=== PATIENT | male | born 1960 | race Caucasian/White ===

== ENCOUNTER → 2019-10-08 09:48 | Outpatient (BNVA) | payer SELFPAY | PROVIDERS: PCP Family Medicine; Referring Provider Family Medicine; Visit Provider Urology | DX: R79.89 Other specified abnormal findings of blood chemistry (principal); E29.1 Testicular hypofunction; N52.9 Male erectile dysfunction, unspecified; F52.4 Premature ejaculation | CPT/HCPCS: 81001 ==

== ENCOUNTER → 2021-09-06 14:50 | Outpatient (BNVA) | payer MEDICARE, SELFPAY | PROVIDERS: PCP Family Medicine; Referring Provider Family Medicine; Visit Provider Podiatrist Foot & Ankle Surgery | DX: M72.2 Plantar fascial fibromatosis (principal) | CPT/HCPCS: 73630; 99203; 99204 ==

== ENCOUNTER 2022-03-18 10:36 | Outpatient (CLI) | payer MEDICARE, SELFPAY ==
--- NOTE | 2022-03-18 11:30 | XRR_ITS ---
PROCEDURE INFORMATION: Exam: XR Lumbosacral Spine Exam date and time: 03/18/2022 11:47 AM Age: 61 years old Clinical indication: Low back pain; Additional info: Sciatica/lumbar pain including sacrum TECHNIQUE: Imaging protocol: Radiologic exam of the lumbosacral spine. Views: 2 or 3 views. Total images: 5 COMPARISON: MR lumbar spine wo con* [id number] 02/09/2016 3:48 PM FINDINGS: Bones/joints: Moderate disc space height loss at L5/S1. L1-3 mild degenerative disc disease with disc space narrowing and osteophyte formation. Vertebral body heights are maintained. No evidence of spondylolysis nor spondylolisthesis. Soft tissues: Unremarkable. Vasculature: Moderate atherosclerotic disease is evident. XR/XR lumbar spine 2-3V* [id number] IMPRESSION: Degenerative changes as described above but no acute pathology detected.
--- NOTE | 2022-03-18 11:30 | XRR_ITS ---
PROCEDURE INFORMATION: Exam: XR Bilateral Hips Exam date and time: 03/18/2022 11:47 AM Age: 61 years old Clinical indication: Hip pain and pelvic pain; Bilateral; Additional info: Bilat hip pain/pelvic pain with pelvis, with pelvis TECHNIQUE: Imaging protocol: Radiologic exam of the bilateral hips. Views: 2 views of hips with pelvis when performed. Total images: 2 COMPARISON: MR lumbar spine wo con* [id number] 02/09/2016 3:48 PM FINDINGS: Bones/joints: Mild marginal osteophytes are noted. No acute fracture nor subluxation. No osseous erosion nor periosteal reaction. Soft tissues: Unremarkable. XR/XR hip BI m 5V wo/w pel* [id number] IMPRESSION: No acute osseous pathology.
== END 2022-03-18 10:37 | disposition home or self-care (01) ==
PROVIDERS: PCP Family Medicine; Visit Provider Family Medicine
DX: M54.40 Lumbago with sciatica, unspecified side (principal); M25.552 Pain in left hip; M25.551 Pain in right hip; R10.2 Pelvic and perineal pain
CPT/HCPCS: 72100; 73523

== ENCOUNTER → 2022-04-30 13:15 | Outpatient (BNVA) | payer MEDICARE, SELFPAY | PROVIDERS: PCP Family Medicine; Visit Provider Surgery | DX: Z12.11 Encounter for screening for malignant neoplasm of colon (principal) | CPT/HCPCS: 99024; 99203 ==

== ENCOUNTER → 2022-05-15 09:45 | Outpatient (BNVA) | payer MEDICARE, SELFPAY | PROVIDERS: PCP Family Medicine; Visit Provider Internal Medicine Cardiovascular Disease | DX: R07.9 Chest pain, unspecified (principal); R06.02 Shortness of breath; I25.10 Atherosclerotic heart disease of native coronary artery without angina pectoris; I10 Essential (primary) hypertension; E78.5 Hyperlipidemia, unspecified | CPT/HCPCS: 99204 ==

== ENCOUNTER 2022-07-09 07:52 | Outpatient (CLI) | payer MEDICARE, SELFPAY ==
[2022-07-09 08:11] VITALS: BMI 39.6
--- NOTE | 2022-07-09 08:12 | ECG_ITS ---
[facility] Test Date: 2022-07-09 Pat Name: Tulio Brown Department: Room: Gender: Male Technician Support Engineer: : 1960 Requested By: Dea Jensen Order Number: [id number] Chaves MD: Harvey Farrell M.D. Interpretive Statements NAME OF STUDY: LEXISCAN SESTAMIBI STRESS TEST INDICATION: [Chest Pain, ] Procedure: At the baseline, the blood pressure was 161/98 mmHg with a heart rate of 55 bpm. The electrocardiogram showed sinus bradycardia, normal axis with normal ST and T's. The Lexiscan was infused over a period of 20 seconds. A total of 0.4 mg of Lexiscan was infused. The stress phase was continued for a total of 5 minutes. Heart rate was at the end of stress phase was 74 bpm and a blood pressure of 157/97 mmHg. The EKG at the peak infusion revealed normal sinus rhythm with no significant ST-T wave changes. Sestamibi was injected 20 seconds after the Lexiscan infusion. Blood pressure at the end of recovery phase was 157/93 mmHg with a heart rate of 72 bpm. Conclusion: 1. Normal EKG response to Lexiscan infusion 2. No Lexiscan induced chest pain or cardiac arrhythmia. 3. Normal blood pressure and heart rate response. 4. Sestamibi/sestamibi perfusion scan pending; see separate report. Electronically Signed On 07-20-2022 18:40:19 ORTHOTIST OR PROSTHETIST by Harvey Farrell M.D. [id number]
--- NOTE | 2022-07-09 08:12 | NMCV_ITS ---
NM xander perf SPECT r/s* [id number] Tulio Brown Age: 61 Gender: M : 1960 Exam Date: 07/09/2022 09:21 Ordering Phys: Dea Jensen MD ([email or web address]) Technologist: MAGNUS Stone Exam Location: [facility] Indications: CHEST PAIN STRESS TEST Please see separate stress test report in [facility] for full findings IMAGE PROTOCOL Rest/Stress 1 Lexiscan Day Radiopharmaceutical Dose (mCi) Administration Site Administered by Rest: Tc-99m 10.7 IV MAGNUS Holguin Sestamibi Stress:Tc-99m 32.6 IV MAGNUS Holguin Sestamibi Rest: 09-Jul-2022 60 Discovery 630 Stress: 09-Jul-2022 30 Discovery 630 0.4mg Lexiscan. Images obtained in supine and prone position. SPECT RESULTS Technical Quality: Excellent Raw Data Analysis: Normal Image Corrections: No attenuation or motion correction applied Summed Stress Score: 0 Summed Rest Score: 0 Summed Difference Score: 0 PERFUSION FINDINGS SPECT images demonstrate homogeneous tracer distribution throughout the myocardium. FUNCTIONAL RESULTS (calculated via Gated SPECT) Stress Image LV EF (%): 58 Stress EDV (mL):114 TID: 1.24 Stress ESV (mL):48 FUNCTIONAL FINDINGS: There is normal left ventricular systolic function. TID ratio is elevated. IMPRESSIONS 1. Myocardial perfusion imaging is normal with no evidence of ischemia 2. LV systolic function is normal. 3. TID ratio is elevated. Clinical correaltion is elevated. Harvey Farrell MD (Electronically Signed) Final Date: 09 July 2022 11:50 S
[2022-07-09] MEDS: regadenoson 0.4 Mg/5 ml Syringe IVP (10:10)
--- NOTE | 2022-07-09 10:23 | PC.NURSE ---
pt blood pressure 187/104. repeated and result was similar. spoke to dr alicea about pressures and he changed order to abdullahi.
[2022-07-09 10:28] VITALS: BP 157/93; PULSE 71
== END 2022-07-09 07:53 | disposition home or self-care (01) ==
PROVIDERS: PCP Family Medicine; Visit Provider Internal Medicine Cardiovascular Disease
DX: R07.9 Chest pain, unspecified (principal)
CPT/HCPCS: 36415; 78452; 93017; 96374; 99204; A9500; J2785

== ENCOUNTER 2022-07-24 12:05 | Inpatient (IN) | payer MEDICARE, SELFPAY ==
[2022-07-24] VITALS (22 sets, daily range): BP systolic 95–151; BP diastolic 66–93; PULSE 91–176; RESP 14–22; TEMP 37–37.2; O2SAT 92–96; BMI 36.8
--- NOTE | 2022-07-24 12:34 | XR_ITS ---
WS: [id number] Portable AP upright chest, 07/24/2022 Clinical Data: tachycardia Comparison: None. Findings: There is a patchy opacity in the periphery of the left lung with greatest diameter of 10.5 cm. Although this opacity could represent pneumonia, a lung mass is also possible. The right lung bayron ws only minimal atelectasis over the surface the right diaphragm. The right lung shows no nodules, ma sses or effusions. The heart is normal. The aortic arch shows mild tortuosity. There is an anterior c ervical disc fusion of the lower cervical spine. XR/XR chest 1V portable [id number] Impression: 1. Patchy opacity in periphery of left lung and recommend PA and lateral chest and probable CT chest 2. Atherosclerosis.
--- NOTE | 2022-07-24 13:32 | W.ED.GENADLT ---
HPI - General Adult General: Chief complaint: General Medical Stated complaint: sob/chills/urinary pain Time Seen by Provider: 07/24/22 13:32 History of Present Illness: Mr. Brown is a 61-year-old gentleman with history of CAD, hypertension, hyperlipidemia presenting to the emergency department for generalized illness. He reports 3 days of gradual onset symptoms including fevers, malaise, cough, chest pain associated with cough, shortness of breath. Symptoms are progressed to moderate to severe in intensity. He was seen by primary care provider and referred to the emergency department for further evaluation of possible kidney abnormality and pneumonia. No other specific changes in health, exacerbating, or alleviating factors identified. Onset (ago): day(s) Location: chest Severity: moderate Quality: aching Pain Consistency: constant Relieving factors: none Exacerbating factors: movement and other Associated symptoms: Reports cough, decreased appetite, fevers/chills, malaise and short of breath Review of Systems General: Reports: 10 or more systems reviewed and unremarkable except in HPI and below Const: Reports: malaise PFSH ED PFSH: Medical History CAD (coronary artery disease) Hyperlipidemia Hypertension Testicular hypogonadism Surgical History H/O hand surgery H/O heart artery stent H/O neck surgery Family History Father , at age 72 Brain aneurysm Hypertension Mother , at age 50 Cancer stomach Heart disease Social History Smoking and tobacco status: never smoked Alcohol intake: current Alcohol intake frequency: 0-2 Drinks per Day Marital status: Current occupational status: retired Physical Exam Const: COMMON NORMALS: alert GENERAL APPEARANCE: cooperative, well developed and ill appearing HENMT: COMMON NORMALS: normocephalic and atraumatic HEAD & SCALP: normocephalic and atraumatic Eye: COMMON NORMALS: conjunctivae normal CONJUNCTIVA: Yes conjunctivae normal SCLERA: sclerae normal Neck/C-Spine: COMMON NORMALS: supple GENERAL: Yes trachea midline Resp: EFFORT & INSPECTION: Yes able to speak in complete sentences AUSCULTATION: rhonchi Cardio: COMMON NORMALS: regular rhythm RATE: tachycardic RHYTHM: regular rhythm GI: COMMON NORMALS: Soft to palpation PALPATION: Yes Soft to palpation and No Tenderness to palpation present (GI) PERCUSSION: normal to percussion Extremity: GENERAL: Yes normal exam except as noted and No edema Neuro: COMMON NORMALS: moves all extremities SENSORIUM/ORIENTATION: Yes alert and No Orientation impaired Psych: COMMON NORMALS: mental status grossly normal and Normal thought process present THOUGHT PROCESS: Normal thought process present Course Vital Signs: Vital signs: Vital Signs Temperature 98.4 F 07/26/22 13:27 Pulse Rate 83 07/26/22 13:27 Respiratory Rate 18 07/26/22 13:27 Blood Pressure 160/77 07/26/22 13:27 Pulse Oximetry 94 07/26/22 13:27 Oxygen Delivery Me thod 07/26/22 11:32 Oxygen Flow Rate 2 07/25/22 04:00 MDM - General Adult Medical Decision Making 61-year-old gentleman presenting with generalized illness. Exam as above, patient has tachycardia and tachypnea with likely evidence of pneumonia. EKG demonstrates sinus tachycardia with normal axis and intervals, no STEMI. Labs with leukocytosis, mild evidence of dehydration on metabolic panel. Lactic acid initially is elevated. No UTI. Chest x-ray with likely left lung pneumonia. During ED course patient treated with IV fluids, antiemetic, antibiotics for community-acquired pneumonia. Most likely etiology of patient's symptoms is pneumonia with evidence of sepsis. The results of ED evaluation were discussed with the patient including plan for admission due to requirement for level of care not available if discharged to prevent significant worsening/deterioration. Patient agreeable with plan. Discussed with hospitalist service who was agreeable to admit patient. Medical Records I reviewed the patient's medical records. Lab Data I reviewed the patient's lab results. 07/24/22 13:10 07/24/22 13:10 Radiology Impressions Chest X-Ray 07/24/22 12:34 Impression: 1. Patchy opacity in periphery of left lung and recommend PA and lateral chest and probable CT chest 2. Atherosclerosis. Chest CTA 07/24/22 15:07 IMPRESSION: 1. Negative CT angiogram of the chest. No evidence of acute pulmonary embolism. 2. 8 cm masslike consolidation left upper lobe concerning for bronchogenic malignancy with rounded pneumonia felt less likely. 3. Mild mediastinal lymphadenopathy possibly metastatic in nature. Laboratory Results WBC 14.8 10^3/uL (4.0-10.0) H 07/24/22 13:10 RBC 4.83 10^6/uL (4.1-5.3) 07/24/22 13:10 Hgb 13.8 g/dL (11.7-16.6) 07/24/22 13:10 Hct 41.6 % (42.0-52.0) L 07/24/22 13:10 MCV 86.1 fl (80-94) 07/24/22 13:10 MCH 28.6 pg (28.0-34.0) 07/24/22 13:10 MCHC 33.2 g/dL (30.0-36.0) 07/24/22 13:10 RDW 13.2 % (12.1-15.1) 07/24/22 13:10 Plt Count 263 10^3/cmm (130-400) 07/24/22 13:10 MPV 9.5 fL (7.4-10.4) 07/24/22 13:10 Neut % (Auto) 89.4 % 07/24/22 13:10 Lymph % (Auto) 4.4 % 07/24/22 13:10 [place] % (Auto) 4.7 % 07/24/22 13:10 Eos % (Auto) 0.0 % 07/24/22 13:10 Baso % (Auto) 0.2 % 07/24/22 13:10 Neut # (Auto) 13.25 10^3/uL (1.8-7.7) H 07/24/22 13:10 Lymph # (Auto) 0.7 10^3/uL (0.8-4.8) L 07/24/22 13:10 [place] # (Auto) 0.7 10^3/uL (0.2-0.9) 07/24/22 13:10 Eos # (Auto) 0.0 10^3/uL (0.0-0.8) 07/24/22 13:10 Baso # (Auto) 0.0 10^3/uL (0.0-0.1) 07/24/22 13:10 Nucleated RBC % (auto) 0 % 07/24/22 13:10 Nucleated RBCs # 0.0 /100WBC 07/24/22 13:10 Sodium 133 mmol/L (136-145) L 07/24/22 13:10 Potassium 3.8 mmol/L (3.5-5.1) 07/24/22 13:10 Chloride 97 mmol/L (98-107) L 07/24/22 13:10 Carbon Dioxide 24 mmol/L (22-29) 07/24/22 13:10 Anion Gap 15.8 (5-19) 07/24/22 13:10 BUN 17 mg/dL (8-23) 07/24/22 13:10 Creatinine 1.1 mg/dL (0.7-1.2) 07/24/22 13:10 GFR Calculation 67.8 mL/min (90-130) L 07/24/22 13:10 Glucose 125 mg/dL (65-115) H 07/24/22 13:10 Estimat Average Glucose 128 07/24/22 13:10 Hemoglobin A1c 6.1 % (4.0-6.0) H 07/24/22 13:10 Calculated Osmolality 279 mOsm/kg (285-295) L 07/24/22 13:10 Lactate 2.6 mmol/L (0.5-2.2) H 07/24/22 13:10 Calcium 8.8 mg/dL (8.5-10.5) 07/24/22 13:10 Total Bilirubin 0.6 mg/dL (0.15-1.2) 07/24/22 13:10 AST 13 U/L (0-40) 07/24/22 13:10 ALT 16 U/L (0-41) 07/24/22 13:10 Alkaline Phosphatase 69 U/L (40-130) 07/24/22 13:10 Troponin T Baseline 11 ng/L (0-15) 07/24/22 13:10 C-Reactive Protein 342.1 mg/L (0.0-4.9) H 07/24/22 13:10 NT-Pro-B Natriuret Pep 542 pg/mL (0-125) H 07/24/22 13:10 Total Protein 7.1 g/dL (6.6-8.7) 07/24/22 13:10 Albumin 3.6 g/dL (3.5-5.2) 07/24/22 13:10 Globulin 3.5 g/dL (1.3-4.6) 07/24/22 13:10 Triglycerides 92 mg/dL (0-150) 07/24/22 13:10 Cholesterol 99 mg/dL (0-200) 07/24/22 13:10 LDL Cholesterol, Calc 34 mg/dL (50-129) L 07/24/22 13:10 HDL Cholesterol 47 mg/dL (60-100) L 07/24/22 13:10 LDL/HDL Ratio 0.72 RATIO (0.00-3.22) 07/24/22 13:10 Cholesterol/HDL Ratio 2.11 mg/dL (1.0-5.00) 07/24/22 13:10 Procalcitonin 5.16 ng/mL (0-0.5) H 07/24/22 13:10 TSH 1.97 uIU/mL (0.27-4.20) 07/24/22 13:10 Urine Color Dark yellow (Yellow) 07/24/22 14:37 Urine Appearance Clear (CLEAR) 07/24/22 14:37 Urine pH 7 (5-7) 07/24/22 14:37 Ur Specific [place] 1.005 (1.005-1.030) 07/24/22 14:37 Urine Protein 1+ (Negative) H 07/24/22 14:37 Urine Glucose (UA) Norm (Normal) 07/24/22 14:37 Urine Ketones Negative (Negative) 07/24/22 14:37 Urine Blood 2+ (Negative) H 07/24/22 14:37 Urine Nitrate Negative (Negative) 07/24/22 14:37 Urine Bilirubin Neg (Negative) 07/24/22 14:37 Urine Urobilinogen 4 mg/dL (Negative) H 07/24/22 14:37 Ur Leukocyte Esterase Negative (Negative) 07/24/22 14:37 Urine RBC Rare /hpf (0-2) 07/24/22 14:37 Urine WBC Rare /hpf (0-5) 07/24/22 14:37 Ur Squamous Epith Cells 0-4 /hpf (0-5) H 07/24/22 14:37 Amorphous Sediment Trace /hpf 07/24/22 14:37 Urine Bacteria None /hpf (NONE) 07/24/22 14:37 Hyaline Casts Rare /lpf 07/24/22 14:37 Discharge Plan Discharge Patient Disposition: Admitted As Inpatient Admit Provider: Rich Erazo Clinical Impression: Pneumonia, Sepsis Condition: Stable Discharge Diet: Cardiac Discharge Activity: Resume usual activity Coding Level of Care Code ED Board Winder for Trenton Meza
[2022-07-24 13:42] LABS: Basophils % 0.2 %; Hematocrit 41.6 % (42.0-52.0); Hemoglobin 13.8 g/dL (11.7-16.6); Lymphocytes # 0.7 10^3/uL (0.8-4.8); Lymphocytes % 4.4 %; Mean Corpuscular HGB Conc 33.2 g/dL (30.0-36.0); Mean Corpuscular Hemoglobin 28.6 pg (28.0-34.0); Mean Corpuscular Volume 86.1 fl (80-94); Mean Platelet Volume 9.5 fL (7.4-10.4); Monocytes # 0.7 10^3/uL (0.2-0.9); Monocytes % 4.7 %; Neutrophils # 13.25 10^3/uL (1.8-7.7); Neutrophils % 89.4 %; Nucleated Red Blood Cells % 0 %; Platelet Count 263 10^3/cmm (130-400); Red Blood Count 4.83 10^6/uL (4.1-5.3); Red Cell Distribution Width 13.2 % (12.1-15.1); White Blood Count 14.8 10^3/uL (4.0-10.0)
--- NOTE | 2022-07-24 13:47 | ECG_ITS ---
[facility] Test Date: 2022-07-24 Pat Name: Tulio Brown Department: Room: Gender: Male Personnel Security Specialist: : 1960 Requested By: Saleem Jensen Order Number: [id number] Andie MD: Chris Bryan M.D. Measurements Intervals [place] Rate: 114 P: 51 [place]: 131 QRS: 55 QRSD: 78 T: 86 QT: 323 QTc: 445 Interpretive Statements SINUS TACHYCARDIA NONSPECIFIC T-WAVE ABNORMALITY ABNORMAL RHYTHM ECG No previous ECG available for comparison Electronically Signed On 07-24-2022 15:09:58 GOLD LEAF LAYER by Chris Bryan M.D. [id number]
[2022-07-24 14:05] LABS: Lactate (Lactic Acid level) 2.6 mmol/L (0.5-2.2)
[2022-07-24 14:11] LABS: Alanine Aminotransferase 16 U/L (0-41); Albumin Level 3.6 g/dL (3.5-5.2); Alkaline Phosphatase 69 U/L (40-130); Anion Gap 15.8 (5-19); Aspartate Amino Transferase 13 U/L (0-40); Blood Urea Nitrogen 17 mg/dL (8-23); Calcium 8.8 mg/dL (8.5-10.5); Carbon Dioxide 24 mmol/L (22-29); Chloride 97 mmol/L (98-107); Globulin 3.5 g/dL (1.3-4.6); Glomerular Filtration Rate 67.8 mL/min (90-130); Glucose 125 mg/dL (65-115); NT Pro B Type Natriuretic Pept 542 pg/mL (0-125); Osmolality Calculated 279 mOsm/kg (285-295); Potassium 3.8 mmol/L (3.5-5.1); Slide Review Slide Review Perform; Sodium 133 mmol/L (136-145); Total Bilirubin 0.6 mg/dL (0.15-1.2); Total Protein 7.1 g/dL (6.6-8.7)
[2022-07-24] MEDS: cefTRIAXone 1,000 MG in sodium chloride 0.9% (plus) 50 ML 100 MG IV (14:20)
[2022-07-24 14:24] LABS: Troponin(5th) Baseline 11 ng/L (0-15)
[2022-07-24] MEDS: doxycycline 100 MG in sodium chloride 0.9% (plus) 100 ML IV (14:43)
[2022-07-24] MEDS: sodium chloride 0.9% 1,000 ML 999 ML IV (14:44)
--- NOTE | 2022-07-24 15:07 | CTR_ITS ---
PROCEDURE INFORMATION: Exam: CTA Chest With Contrast Exam date and time: 07/24/2022 3:45 PM Age: 61 years old Clinical indication: Shortness of breath; Prior surgery; Surgery type: Stents; Additional info: SOB TECHNIQUE: Imaging protocol: Computed tomographic angiography of the chest with contrast. 3D rendering (Not supervised by radiologist): MIP and/or 3D reconstructed images were created by the technologist. Radiation optimization: All CT scans at this facility use at least one of these dose optimization techniques: automated exposure control; mA and/or kV adjustment per patient size (includes targeted exams where dose is matched to clinical indication); or iterative reconstruction. Contrast material: OMNI 350; Contrast volume: 100 ml; Contrast route: INTRAVENOUS (IV); REPORTING DATA: Count of CT and Cardiac NM exams in prior 12 months: This patient has received [address] and 0 known cardiac nuclear medicine studies in the 12 months prior to the current study. COMPARISON: CR XR chest 1V portable [id number] 07/24/2022 1:07 PM RADIATION DOSE METRICS: Total DLP (mGy-cm): 519.98 FINDINGS: Pulmonary arteries: Pulmonary vasculature is adequately opacified without filling defects or other evidence of acute pulmonary embolism. Aorta: Thoracic aorta is unremarkable. No aortic aneurysm or evidence of aortic dissection. Lungs: Scattered granulomatous calcifications within the mediastinum and hilum, longstanding. 8 cm rounded masslike area of consolidation posterior segment left upper lobe concerning for malignancy with rounded pneumonia felt less likely. Remaining lung lawrence are clear. Chronic granulomatous calcifications within the spleen. Pleural spaces: Unremarkable. No pneumothorax. No pleural effusion. Heart: Heart is not significantly enlarged. Prior coronary artery stenting. No significant pericardial effusion. Lymph nodes: Mild mediastinal lymphadenopathy measuring up to 1.4 cm possibly metastatic in nature. Bones/joints: Multilevel degenerative endplate osteophytes throughout the thoracic spine. The no suspicious bone lesions detected. Soft tissues: Unremarkable. CT/CT angio chest PE protcl [id number] IMPRESSION: 1. Negative CT angiogram of the chest. No evidence of acute pulmonary embolism. 2. 8 cm masslike consolidation left upper lobe concerning for bronchogenic malignancy with rounded pneumonia felt less likely. 3. Mild mediastinal lymphadenopathy possibly metastatic in nature.
[2022-07-24 15:08] LABS: C Reactive Protein 342.1 mg/L (0.0-4.9)
--- NOTE | 2022-07-24 15:11 | PM.HP ---
Providers/Chief Complaint Primary Care Provider: Bakari Zazueta DO Chief Complaint: sob/chills/urinary pain History of Present Illness Tulio Brown is a 61 year old male with a past medical history of CAD x4, hypertension, hyperlipidemia, has been having complaints of chest pain shortness of breath seen by cardiology as outpatient. Who presents to [facility] due to a 3-day history of worsening shortness of breath, nonproductive cough, fatigue, malaise, fevers. Patient reports increased shortness of breath at rest with exertion, no hemoptysis, no calf pain, calf swelling, but does have complaints of nonproductive cough, fatigue, malaise, fevers. He saw his primary care provider and he was worried that he might have a pneumonia so he sent him to the emergency room for evaluation. In the emergency room, patient had tachypnea, tachycardia, on room air, has leukocytosis, chest x-ray shows patchy opacity left lung, with concerns for pneumonia has received antibiotic therapy, fluid therapy, currently alert awake, he is resting comfortably, still complaining of shortness of breath, and a cough. He denies any smoking history. Review of Systems Const: Reports: fever(s), chills, body aches, fatigue and malaise Card: Denies: chest pain Resp: Reports: dyspnea and non-productive cough GI: Denies: abdominal pain : Denies: difficulty urinating Musc: Denies: back pain Neuro: Denies: headache(s) Medications/Allergies Home Medications Medication Instructions Recorded Confirmed Last Taken Type atorvastatin 40 mg tablet 40 mg PO DAILY 09/24/19 07/24/22 07/22/22 History aspirin 81 mg tablet,delayed 81 mg PO DAILY #90 tabs 05/15/22 07/24/22 07/22/22 Rx release gabapentin 100 mg capsule 100 mg PO DAILY 05/15/22 07/24/22 07/22/22 History metoprolol succinate 25 mg 25 mg PO DAILY #90 tabs 05/15/22 07/24/22 07/22/22 Rx tablet,extended release 24 hr nifedipine 60 mg tablet,extended 60 mg PO DAILY #90 tabs 05/15/22 07/24/22 07/22/22 Rx release nitroglycerin 0.4 mg sublingual 0.4 mg sublingual Q5M PRN chest 05/15/22 07/24/22 Unknown Rx tablet pain #30 tabs sertraline 50 mg tablet 50 mg PO DAILY 05/15/22 07/24/22 07/22/22 History Allergies Allergy/AdvReac Type Severity Reaction Status Date / Time clopidogrel Allergy ALGY-Rash Verified 05/15/22 07:18 PFSH Acute PFSH: Medical History CAD (coronary artery disease) Hyperlipidemia Hypertension Testicular hypogonadism Surgical History H/O hand surgery H/O heart artery stent H/O neck surgery Family History Father , at age 72 Brain aneurysm Hypertension Mother , at age 50 Cancer stomach Heart disease Social History Smoking and tobacco status: never smoked Alcohol intake: current Alcohol intake frequency: 0-2 Drinks per Day Marital status: Current occupational status: retired Vitals/I&O/Wt Last Vital Signs Temp 98.7 F 07/24/22 14:21 Pulse 91 07/24/22 14:52 Resp 16 07/24/22 14:21 BP 138/86 07/24/22 14:21 Pulse Ox 92 07/24/22 14:52 O2 Del Method 07/24/22 14:52 07/24/22 07/24/22 07/24/22 06:59 14:59 22:59 Intake Total 50 / 50 Balance 50 / 50 Weight last 48 hrs Weight 103.419 kg Physical Exam Const: COMMON NORMALS: no acute distress and patient oriented x3 HENMT: COMMON NORMALS: normocephalic HEAD & SCALP: normocephalic Eye: COMMON NORMALS: Equal, round and reactive pupils present and EOMs intact bilaterally Neck/C-Spine: COMMON NORMALS: no JVD Lymph: LYMPHATIC: no lymphadenopathy noted Resp: COMMON NORMALS: normal respiratory effort, No retractions, No use of accessory muscles and clear to auscultation bilaterally AUSCULTATION: wheezes (In all lung lawrence) Cardio: COMMON NORMALS: no JVD, regular rate, regular rhythm, S1 normal heart sound present and S2 normal heart sound present RATE: regular rate RHYTHM: regular rhythm HEART SOUNDS: S1 normal heart sound present and S2 normal heart sound present GI: COMMON NORMALS: Normal to inspection, nondistended, normoactive bowel sounds present, Soft to palpation, non-tender, No hepatosplenomegaly present, no masses and no bruits PALPATION: Yes Soft to palpation and Yes No hepatosplenomegaly present Extremity: COMMON NORMALS: no calf tenderness and no pedal edema Neuro: COMMON NORMALS: patient oriented x3, CN's II-XII intact bilaterally, moves all extremities and no focal motor deficits Psych: COMMON NORMALS: mental status grossly normal Data 07/24/22 13:10 07/24/22 13:10 Micro: Microbiology 07/24/22 13:05 Blood Culture - Preliminary Blood SPECIMEN COLLECTED 07/24/22 13:10 Blood Culture - Preliminary Blood SPECIMEN COLLECTED A&P Assessment and plan (1) Pneumonia: (2) Sepsis: (3) Exertional shortness of breath: (4) Hyperlipidemia: (5) Hypertension: (6) CAD (coronary artery disease): (7) Goals of care, counseling/discussion: Plan Pneumonia, with sepsis -Leukocytosis, CRP 34.2 -Given his recent complaints of chest pain, increased shortness of breath, chest x-ray shows a left lung opacity, will do CT angiogram of the chest -Continue Rocephin, switch to azithromycin -Continue neb treatment -Blood cultures -Sputum cultures -Serial EKGs or troponins telemetry monitoring -Monitor respiratory status closely -Continue aspirin, statin, metoprolol, nifedipine -Flu, COVID -IV fluid therapy -Full code -Lovenox for DVT prophylaxis Attestations Medical Necessity Statement*: Patient requires hospitalization, for sepsis, pneumonia, shortness of breath Coding Level of Care Code Acute Code for [facility] Fwd Diagnoses Pneumonia J18.9 Sepsis A41.9 Exertional shortness of breath R06.02 Hyperlipidemia E78.5 Hypertension I10 CAD (coronary artery disease) I25.10 Goals of care, counseling/discussion Z71.89
[2022-07-24 15:15] LABS: Procalcitonin 5.16 ng/mL (0-0.5)
[2022-07-24 15:24] LABS: Lactic Sepsis W/Reflex 1.5 mmol/L (0.5-2.2)
[2022-07-24 15:40] LABS: Add Urine Microscopic? YES; Bilirubin Urine Neg (Negative); Blood Urine 2+ (Negative); Glucose Urine UA Norm (Normal); Ketones Urine Negative (Negative); Leukocyte Esterase Urine Negative (Negative); Nitrate Urine Negative (Negative); Protein Urine 1+ (Negative); Specific Gravity, Urine 1.005 (1.005-1.030); Urine Appearance Clear (CLEAR); Urine Color Dark Yellow (Yellow); Urobilinogen Urine 4 mg/dL (Negative); pH Urine 7 (5-7)
[2022-07-24 15:41] LABS: RBC Urine RARE /hpf (0-2)
[2022-07-24 15:42] LABS: Add Urine Culture? No; Amorphous Sediment Urine TRACE /hpf; Hyaline Casts Urine RARE /lpf; Squamous Epithelial Cell Urine 0-4 /hpf (0-5); WBC Urine RARE /hpf (0-5)
--- NOTE | 2022-07-24 15:47 | ECG_ITS ---
[facility] Test Date: 2022-07-24 Pat Name: Tulio Brown Department: Room: Gender: Male Tobacco Farmworker: : 1960 Requested By: Saleem Jensen Order Number: [id number] Andie MD: Cirilo Francis M.D. Measurements Intervals [place] Rate: 115 P: 29 PA: 124 QRS: 46 QRSD: 76 T: 64 QT: 315 QTc: 436 Interpretive Statements SINUS TACHYCARDIA NONSPECIFIC T-WAVE ABNORMALITY ABNORMAL RHYTHM ECG Compared to ECG 07/24/2022 14:19:28 No significant changes Electronically Signed On 07-25-2022 23:44:43 NOTCH MACHINE OPERATOR by Cirilo Francis M.D. [id number]
[2022-07-24 15:49] LABS: Troponin 5 2HR 13.45 ng/L (0-15)
[2022-07-24] MEDS: iohexol 350 mg/mL 500 mL Btl (per mL) IV (15:57)
[2022-07-24 16:04] LABS: Troponin 5 2HR Delta 2.45 ABS# (0-10)
[2022-07-24 17:40] LABS: Estmated Average Glucose 128; Hemoglobin A1C 6.1 % (4.0-6.0)
[2022-07-24 17:44] LABS: Chol HDL Ratio 2.11 mg/dL (1.0-5.00); Cholesterol 99 mg/dL (0-200); HDL Cholesterol 47 mg/dL (60-100); LDL Cholesterol Calculated 34 mg/dL (50-129); LDL HDL Ratio 0.72 RATIO (0.00-3.22); Thyroid Stimulating Hormone 1.97 uIU/mL (0.27-4.20); Triglycerides 92 mg/dL (0-150)
[2022-07-24 18:19] LABS: Influenza A by IFA negative (Negative); Influenza B by IFA negative (Negative)
[2022-07-24] MEDS: sodium chloride 0.9% 1,000 ML 75 ML IV (18:26)
[2022-07-24] MEDS: enoxaparin 40 mg/0.4 mL Syringe SUBCUT (18:26)
[2022-07-24] MEDS: pantoprazole 40 mg SDV IVP (18:27)
[2022-07-24] MEDS: piperacillin-tazobactam 3.375 GM in sodium chloride 0.9% (plus) 50 ML IV (18:27)
[2022-07-24] MEDS: acetaminophen 325 mg Tablet 650 MG PO (18:43)
--- NOTE | 2022-07-24 19:14 | PC.PHAR ---
Pharmacy to dose vancomycin (PolicyStat ID [id number]) Standard dosing requested (target trough 10-15) Calculated dose (rounded) 15 mg/kg = 1500 mg Estimated frequency: q 18 hours is conservatively dosed to expected values ~11. Pt height/weight/bmi could yield slightly higher or lower results Trough values drawn before 3-5: entered before 3th dose 07/26/22@0930 may not be at steady state but will keep waking hour levels and a relative figure to estimate appropriate dosing.
[2022-07-24 19:45] LABS: Adenovirus Not Detected (NOT DETECT); Chlamydia Pneumoniae Not Detected (NOT DETECT); Coronavirus 229E,HKU1,NL63,OC4 Not Detected (NOT DETECT); Human Metapneumovirus Not Detected (NOT DETECT); Human Rhinovirus/Enterovirus Not Detected (NOT DETECT); Influenza A Not Detected (NOT DETECT); Influenza A H1 Not Detected (NOT DETECT); Influenza A H1-2009 Not Detected (NOT DETECT); Influenza A H3 Not Detected (NOT DETECT); Influenza B Not Detected (NOT DETECT); Mycoplasma Pneumoniae Not Detected (NOT DETECT); Parainfluenza Virus Type 1 Not Detected (NOT DETECT); Parainfluenza Virus Type 2 Not Detected (NOT DETECT); Parainfluenza Virus Type 3 Not Detected (NOT DETECT); Parainfluenza Virus Type 4 Not Detected (NOT DETECT); Respiratory Syncytial Virus A Not Detected (NOT DETECT); Respiratory Syncytial Virus B Not Detected (NOT DETECT); SARS-COV-2 Not Detected (NOT DETECT)
[2022-07-24] MEDS: dilTIAZem 5 mg/mL SDV 5 mL 10 MG IVP ×2 (20:15→20:47)
--- NOTE | 2022-07-24 20:16 | ECG_ITS ---
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 Measurements Intervals [place] Rate: 162 P: 0 NE: 0 QRS: 50 QRSD: 80 T: 0 QT: 229 QTc: 376 Interpretive Statements ATRIAL FIBRILLATION WITH RAPID VENTRICULAR RESPONSE NONSPECIFIC ST & T-WAVE ABNORMALITY CRITICAL TEST RESULT WARNING: DATA QUALITY MAY AFFECT INTERPRETATION Compared to ECG 07/24/2022 16:24:20 Sinus tachycardia no longer present T-wave abnormality still present Electronically Signed On 07-25-2022 23:46:59 [employer]CTOR BUSINESS EDUCATION by Cirilo Francis M.D. [id number]
[2022-07-24 20:20] LABS: Glucose Point of Care 129 mg/dL (70-110)
[2022-07-24 20:46] LABS: Troponin 5 6HR 13.82 ng/L (0-15)
[2022-07-24] MEDS: dilTIAZem 100 MG in sodium chloride 0.9% (add-van) 100 ML 10 MG IV (20:47)
--- NOTE | 2022-07-24 20:54 | PC.NURSE ---
Dr. Ramirez at bedside around 2034. Patient still in A fib with RVR- rates in 170s. Order obtained for 10mg IVP Cardizem. Order entered under Dr. Ramirez. Also instructed by Dr. Ramirez to start Cardizem drip at 10 instead of 5mg. Asked at bedside if she wanted his routine Cardizem 25mg to be administered tonight, verbal order to not give. Order to titrate up Cardizem drip at 2056 to 12.5mg d/t patient rate still in 130's/140s. BP stable, patient complaing of chest pain still. No further orders at this time. Will make additional note if new orders are obtained.
[2022-07-24] MEDS: metoprolol tartrate 1 mg/1 mL SDV 5 mL 5 MG IVP (21:05)
--- NOTE | 2022-07-24 21:07 | PC.NURSE ---
2105- Order to give Metoprolol 5mg at bedside.
[2022-07-24 21:10] LABS: Troponin 5 6HR Delta 0.37 ng/L (0-12)
[2022-07-24 21:16] LABS: Magnesium 1.8 mg/dL (1.7-2.3); Potassium 3.6 mmol/L (3.5-5.1)
--- NOTE | 2022-07-24 22:09 | PC.NURSE ---
Rapid Response: At 2009 pt c/o chest pain and is diaphoretic. HR 170-190 on telemetry so RR called. BP and O2 stable on RA. EKG showing Afib with RVR with rate 162. Orders received for Cardizem IVP and move to CSU or ICU to start on Cardizem drip. Family updated and pt moved to ICU 5, bedside report given in ICU.
--- NOTE | 2022-07-24 22:12 | PC.NURSE ---
This nurse received shift handoff report from JUAN MANUEL Rodriguez this nurse and dayshift nurse were at bedside during report along with two family members, also at bedside. This nurse assessed the pts pain and at that time, he stated I am a little uncomfortable, I want a fan this nurse ensured the pt was in bed and all questions were answered. Upon rounding with the pt to perform the physical nursing shift assessment this nurse noted the pt was extremely diaphoretic and complaining of chest pain where as he wasn't prior. This nurse immediately obtained a set of vitals, put the pt on tele monitoring and obtained an EKG, also pt was put on nasal cannula o2. The pts heart rate was noted to be 180s, at that time a rapid response was called. This nurse then accompanied the pt down to ICU 5 and gave bedside report to the ICU nurse. The pts family was updated on the situation and they verbalized understanding.
[2022-07-24] MEDS: dilTIAZem 30 mg Tablet PO (22:16)
[2022-07-24] MEDS: vancomycin 1,500 MG/300 ML PIGGYBACK 200 MG IV (22:16)
--- NOTE | 2022-07-24 23:00 | W.PM.EVENTAC ---
Event Note Event Note: Rapid response called by the nurse at around 8:30 PM for tachycardia along with diaphoresis and chest pain. On examination patient was diaphoretic with heart rate running in 140s?170s, irregular with blood pressure of 140 over 90 mmHg. On review of chart troponin cycle #1 earlier in the evening was negative. Plan: Labs reviewed. Check electrolytes. Stat EKG. After consulting A-fib with RVR patient was given IV Cardizem push x2. Heart rate elevated but better controlled. Blood pressure stable. Given metoprolol push 5 mg. Started on Cardizem drip. At the end of rapid response was running at 12.5. Advised to transfer to ICU for further monitoring to monitor blood pressures. When reviewed again later in the evening heart rate was better controlled on Cardizem drip and blood pressure was stable. No more RVR. Symptoms alleviated. Event Notes Attestations Time Spent in Patient Care: Critical care time spent over 80 minutes seen multiple times during the evening.
[2022-07-25] VITALS (45 sets, daily range): BP systolic 96–134; BP diastolic 60–90; PULSE 71–98; RESP 12–30; TEMP 36.8–37.9; O2SAT 90–96; BMI 37.6
[2022-07-25] MEDS: piperacillin-tazobactam 3.375 GM in sodium chloride 0.9% (plus) 50 ML IV ×3 (01:04→18:15)
[2022-07-25 03:50] LABS: Basophils % 0.1 %; Hematocrit 40.1 % (42.0-52.0); Hemoglobin 12.8 g/dL (11.7-16.6); Lymphocytes # 0.9 10^3/uL (0.8-4.8); Lymphocytes % 6.3 %; Mean Corpuscular HGB Conc 31.9 g/dL (30.0-36.0); Mean Corpuscular Hemoglobin 27.4 pg (28.0-34.0); Mean Corpuscular Volume 85.9 fl (80-94); Mean Platelet Volume 9.8 fL (7.4-10.4); Monocytes # 0.8 10^3/uL (0.2-0.9); Monocytes % 5.7 %; Neutrophils # 12.12 10^3/uL (1.8-7.7); Neutrophils % 86.8 %; Nucleated Red Blood Cells % 0 %; Platelet Count 244 10^3/cmm (130-400); Red Blood Count 4.67 10^6/uL (4.1-5.3); Red Cell Distribution Width 13.2 % (12.1-15.1)
[2022-07-25] MEDS: dilTIAZem 30 mg Tablet PO ×4 (03:54→21:01)
[2022-07-25 04:15] LABS: Anion Gap 14.7 (5-19); Blood Urea Nitrogen 15 mg/dL (8-23); Calcium 8.5 mg/dL (8.5-10.5); Carbon Dioxide 21 mmol/L (22-29); Chloride 104 mmol/L (98-107); Glomerular Filtration Rate 75.7 mL/min (90-130); Glucose 112 mg/dL (65-115); Osmolality Calculated 284 mOsm/kg (285-295); Potassium 3.7 mmol/L (3.5-5.1); Sodium 136 mmol/L (136-145)
[2022-07-25] MEDS: dilTIAZem 100 MG in sodium chloride 0.9% (add-van) 100 ML IV (05:56)
[2022-07-25] MEDS: acetaminophen 325 mg Tablet 650 MG PO (07:25)
[2022-07-25] MEDS: aspirin 81 mg EC Tablet PO (07:26)
[2022-07-25] MEDS: atorvastatin 40 mg Tablet PO (07:26)
[2022-07-25] MEDS: gabapentin 100 mg Capsule PO (07:26)
[2022-07-25] MEDS: sertraline 50 mg Tablet PO (07:26)
[2022-07-25] MEDS: apixaban 5 mg Tablet PO ×2 (09:45→21:01)
--- NOTE | 2022-07-25 12:52 | PM.PN ---
Subjective Subjective: Patient was seen this morning, he sitting up in a chair, in A-fib, rate well controlled, he had episodes of A-fib with RVR last night, no chest pain this morning, no palpitations, still feels a bit short of breath, daughter at bedside, Vitals/I&O/Wt Last Vital Signs Temp 98.3 F 07/25/22 04:00 Pulse 78 07/25/22 09:30 Resp 16 07/25/22 09:30 BP 106/63 07/25/22 09:30 Pulse Ox 94 07/25/22 09:30 O2 Del Method 07/25/22 04:00 O2 Flow Rate 2 07/25/22 04:00 07/24/22 07/25/22 07/25/22 22:59 06:59 14:59 Intake Total 1181.667 / 1231.667 832.417 / 2064.084 360 / 360 Output Total 1000 / 1000 Balance 1181.667 / 1231.667 -167.583 / 1064.084 360 / 360 Weight last 48 hrs Weight 105.857 kg Weight 103.419 kg Physical Exam Const: COMMON NORMALS: no acute distress and patient oriented x3 Resp: COMMON NORMALS: normal respiratory effort, No retractions and No use of accessory muscles AUSCULTATION: wheezes Cardio: COMMON NORMALS: regular rate, S1 normal heart sound present and S2 normal heart sound present RATE: regular rate and tachycardic RHYTHM: abnormal rhythm irregularly irregular HEART SOUNDS: S1 normal heart sound present and S2 normal heart sound present GI: COMMON NORMALS: Normal to inspection, nondistended, normoactive bowel sounds present and non-tender Extremity: COMMON NORMALS: no pedal edema Neuro: COMMON NORMALS: patient oriented x3 Psych: COMMON NORMALS: mental status grossly normal Data 07/25/22 03:04 07/25/22 03:04 Micro: Microbiology 07/24/22 17:45 MRSA Culture - Final Nose 07/24/22 17:30 Gram Stain - Final Sputum - Expectorated Sputum Sputum Culture - Preliminary 07/24/22 13:05 Blood Culture - Preliminary Blood SPECIMEN COLLECTED 07/24/22 13:10 Blood Culture - Preliminary Blood SPECIMEN COLLECTED A&P Assessment and plan (1) Pneumonia: (2) Sepsis: (3) Exertional shortness of breath: (4) Hyperlipidemia: (5) Hypertension: (6) CAD (coronary artery disease): (7) Goals of care, counseling/discussion: (8) Atrial fibrillation with RVR: (9) Lung mass: (10) Acute respiratory failure with hypoxia: Plan Acute hypoxic respiratory failure Pneumonia, with sepsis -Currently on 2 L -Sepsis resolved, present on admit, now resolved -Leukocytosis, CRP 342, Pro-Leonard 5 CT angiogram of the chest- -1. ? Negative CT angiogram of the chest. No evidence of acute pulmonary embolism. 2. ? 8 cm masslike consolidation left upper lobe concerning for bronchogenic malignancy with rounded pneumonia felt less likely. 3. ? Mild mediastinal lymphadenopathy possibly metastatic in nature. -Continue vancomycin, Zosyn -Continue neb treatment -Blood cultures -Sputum cultures -MRSA nares - telemetry monitoring -Monitor respiratory status closely -Continue aspirin, statin, metoprolol, -For A-fib with RVR, currently rate well controlled continue p.o. Cardizem, continue Eliquis ?Normal left ventricular size and systolic function, EF 63 %. ?Moderate left ventricular hypertrophy. No regional wall motion ?abnormalities. ?No gross valvular abnormalities ?Normal chamber sizes ?No similar previous studies are available for comparison -For underlying lung mass, will have patient follow-up with pulmonary as outpatient for consideration of repeat CT scan in 6 weeks and or bronchoscopy -Flu, COVID negative -IV fluid therapy -Full code -Eliquis for DVT prophylaxis Attestations Medical Necessity Statement*: Patient requires hospitalization for pneumonia with sepsis, A-fib with RVR Diagnoses Pneumonia J18.9 Sepsis A41.9 Exertional shortness of breath R06.02 Hyperlipidemia E78.5 Hypertension I10 CAD (coronary artery disease) I25.10 Goals of care, counseling/discussion Z71.89 Atrial fibrillation with RVR I48.91 Lung mass R91.8 Acute respiratory failure with hypoxia J96.01
--- NOTE | 2022-07-25 13:53 | PC.NURSE ---
Pt was taken to [facility] by [facility] staff at around 1330. Family with patient and had all belongings.
[2022-07-25] MEDS: vancomycin 1,500 MG/300 ML PIGGYBACK 200 MG IV (15:25)
[2022-07-25] MEDS: metoprolol succinate ER (24 HR) 25 mg Tablet 12.5 MG PO (18:14)
[2022-07-25] MEDS: pantoprazole 40 mg SDV IVP (18:14)
--- NOTE | 2022-07-25 20:53 | USCV_ITS ---
Tulio Brown Age: 61 Gender: M : 1960 Exam Date: 07/25/2022 01:15 Ordering Phys: Lois Ba MD Technologist: DELILAH [place] [facility] [place]ication: hx CAD, HTN, HL, fever, malaise, cough, SOB, new afib. BP: 137 / 80 HR: 96 Rhythm: Atrial fibrillation Technical Quality: Adequate MEASUREMENTS (Male / Female) Normal Values 2D ECHO LV Diastolic Diameter PLAX 3.3 cm 4.2 - 5.9 / 3.9 - 5.3 cm LV Systolic Diameter PLAX 2.0 cm IVS Diastolic Thickness 2.3 cm 0.6 - 1.0 / 0.6 - 0.9 cm IVS Systolic Thickness 2.4 cm LVPW Diastolic Thickness 1.6 cm 0.6 - 1.0 / 0.6 - 0.9 cm LVPW Systolic Thickness 1.9 cm LVOT Diameter 2.3 cm LV Ejection Fraction 2D Teich 70.0 % LV Ejection Fraction MOD 2C 66.8 % LV Ejection Fraction 2C AL 68.0 % LA Diameter 3.8 cm LA Width 4.3 cm LA Height 6.3 cm RA Width 3.3 cm RA Height 4.6 cm Aorta at Sinotubular Diameter 3.4 cm IVC Diameter 1.5 cm M-MODE Aortic Annulus Diameter 3.3 cm LA Ao Ratio MM 1.3 MV E Point Septal Separation 0.3 cm DOPPLER AV Peak Velocity 110.0 cm/s LVOT Peak Velocity 82.0 cm/s AV Area Cont Eq vti 3.1 cm squared AV Area Cont Eq pk 3.0 cm squared MV Peak Velocity 100.0 cm/s MV Area PHT 3.3 cm squared MV E' Velocity 56.5 cm/s Mitral E to MV E' Ratio 12.1 Mitral E to LV E' Lateral Ratio 10.9 Mitral E to LV E' Septal Ratio 13.9 TV Peak E Velocity 55.0 cm/s PV Peak Velocity 79.0 cm/s RV Acceleration Time 0.1 s RV Ejection Time 0.3 s RV AcT/ET 0.2 FINDINGS Left Ventricle Normal left ventricular size and systolic function, EF 63 %. Moderate left ventricular hypertrophy. No regional wall motion abnormalities. Right Ventricle The right ventricle is normal in size and function. Right Atrium The right atrium is normal in size. Left Atrium The left atrium is normal in size. Mitral Valve Trace mitral valve regurgitation. Aortic Valve No gross abnormalities noted Tricuspid Valve No gross abnormalities noted Pulmonic Valve No gross abnormalities noted Pericardium Normal pericardium without effusion. Aorta Normal aortic annulus size. IVC Normal inferior vena cava. CONCLUSIONS Normal left ventricular size and systolic function, EF 63 %. Moderate left ventricular hypertrophy. No regional wall motion abnormalities. No gross valvular abnormalities Normal chamber sizes No similar previous studies are available for comparison Dr Cirilo Francis MD FAC (Electronically Signed) Final Date: 25 July 2022 06:52 S
[2022-07-26 02:12] LABS: Basophils % 0.2 %; Eosinophils # 0.1 10^3/uL (0.0-0.8); Eosinophils % 0.9 %; Hemoglobin 11.8 g/dL (11.7-16.6); Lymphocytes # 1.2 10^3/uL (0.8-4.8); Lymphocytes % 13.3 %; Mean Corpuscular HGB Conc 32.8 g/dL (30.0-36.0); Mean Corpuscular Hemoglobin 27.8 pg (28.0-34.0); Mean Corpuscular Volume 84.9 fl (80-94); Mean Platelet Volume 9.5 fL (7.4-10.4); Monocytes # 0.7 10^3/uL (0.2-0.9); Monocytes % 7.6 %; Neutrophils # 7.15 10^3/uL (1.8-7.7); Neutrophils % 77.7 %; Nucleated Red Blood Cells % 0 %; Platelet Count 240 10^3/cmm (130-400); Red Blood Count 4.24 10^6/uL (4.1-5.3); White Blood Count 9.2 10^3/uL (4.0-10.0)
[2022-07-26] MEDS: piperacillin-tazobactam 3.375 GM in sodium chloride 0.9% (plus) 50 ML IV (02:25)
[2022-07-26 02:40] LABS: NT Pro B Type Natriuretic Pept 565 pg/mL (0-125)
[2022-07-26 03:01] LABS: Alanine Aminotransferase 20 U/L (0-41); Alkaline Phosphatase 63 U/L (40-130); Anion Gap 14.8 (5-19); Aspartate Amino Transferase 18 U/L (0-40); Blood Urea Nitrogen 15 mg/dL (8-23); C Reactive Protein 176.4 mg/L (0.0-4.9); Carbon Dioxide 21 mmol/L (22-29); Chloride 105 mmol/L (98-107); Globulin 2.2 g/dL (1.3-4.6); Glomerular Filtration Rate 85.5 mL/min (90-130); Glucose 102 mg/dL (65-115); Magnesium 2.1 mg/dL (1.7-2.3); Osmolality Calculated 285 mOsm/kg (285-295); Phosphorus 1.8 mg/dL (2.5-4.5); Potassium 3.8 mmol/L (3.5-5.1); Sodium 137 mmol/L (136-145); Total Bilirubin 0.4 mg/dL (0.15-1.2); Total Protein 5.2 g/dL (6.6-8.7)
[2022-07-26 03:48] VITALS: BP 129/77; PULSE 73; RESP 16; TEMP 37.1; O2SAT 95
[2022-07-26] MEDS: dilTIAZem 30 mg Tablet PO ×2 (04:39→10:10)
[2022-07-26 05:48] VITALS: PULSE 96
[2022-07-26 07:15] VITALS: BP 151/94; PULSE 72; RESP 16; TEMP 37.2; O2SAT 94
[2022-07-26 07:32] VITALS: PULSE 73; RESP 18; O2SAT 92
[2022-07-26] MEDS: metoprolol succinate ER (24 HR) 25 mg Tablet 12.5 MG PO (08:55)
[2022-07-26] MEDS: aspirin 81 mg EC Tablet PO (08:55)
[2022-07-26] MEDS: atorvastatin 40 mg Tablet PO (08:55)
[2022-07-26] MEDS: apixaban 5 mg Tablet PO (08:55)
[2022-07-26] MEDS: sertraline 50 mg Tablet PO (08:55)
[2022-07-26] MEDS: gabapentin 100 mg Capsule PO (08:55)
[2022-07-26] MEDS: phosphorus 250 mg Tablet PO (10:10)
[2022-07-26 10:14] LABS: Vancomycin Trough 5.5 ug/mL (10-15)
[2022-07-26 11:32] VITALS: BP 160/77; PULSE 83; RESP 18; TEMP 36.9; O2SAT 94
--- NOTE | 2022-07-26 11:49 | PM.DCS ---
Discharge Providers Date of Admission: 07/24/22 14:38 Date of Discharge: July 26, 2022 Attending Provider at Admission: Rich Erazo MD Attending Provider at Discharge: Rich Erazo MD Primary Care Provider: Bakari Zazueta DO Diagnoses at Discharge Discharge Diagnosis (1) Pneumonia: Status: Acute (2) Sepsis: Status: Acute (3) Exertional shortness of breath: Status: Acute (4) Hyperlipidemia: Status: Acute (5) Hypertension: Status: Acute (6) CAD (coronary artery disease): Status: Acute (7) Goals of care, counseling/discussion: Status: Acute (8) Atrial fibrillation with RVR: Status: Acute (9) Lung mass: Status: Acute (10) Acute respiratory failure with hypoxia: Status: Acute Reason for Visit Reason for Visit: sob/chills/urinary pain Hospital Course Hospital Course Tulio Brown is a 61 year old male with a past medical history of CAD x4, hypertension, hyperlipidemia, has been having complaints of chest pain shortness of breath seen by cardiology as outpatient.? Who presents to [facility] due to a 3-day history of worsening shortness of breath, nonproductive cough, fatigue, malaise, fevers.? Patient reports increased shortness of breath at rest with exertion, no hemoptysis, no calf pain, calf swelling, but does have complaints of nonproductive cough, fatigue, malaise, fevers.? He saw his primary care provider and he was worried that he might have a pneumonia so he sent him to the emergency room for evaluation.? In the emergency room, patient had tachypnea, tachycardia, on room air, has leukocytosis, chest x-ray shows patchy opacity left lung, with concerns for pneumonia has received antibiotic therapy, fluid therapy, currently alert awake, he is resting comfortably, still complaining of shortness of breath, and a cough.? He denies any smoking history. Patient was admitted to [facility] for acute hypoxic respiratory failure with sepsis, secondary to pneumonia, left upper lobe, received broad-spectrum antibiotic therapy, overall clinically improved, to room air. Will be discharged on dual antibiotic therapy, with close follow-up with primary care as outpatient. Patient was found to have a 8 cm masslike consolidation of left upper lobe, concerning for bronchogenic malignancy, spoke to patient in detail, he voiced understanding, all questions answered, will follow-up with pulmonary as outpatient in 6 weeks for repeat CAT scan versus bronchoscopy Patient developed A-fib with RVR during his hospitalization, has underlying CAD, no chest pain complaints, cardiac echo EF of 63%, managed with Cardizem drip, transition to p.o. Cardizem, and his home metoprolol. Discharged on Eliquis 5 twice daily monitor for bloody or black stools, monitor hemoglobin as outpatient. Discharged on metoprolol and Cardizem follow-up with cardiology in 2 weeks. Physical Exam Const: COMMON NORMALS: no acute distress and patient oriented x3 Resp: COMMON NORMALS: normal respiratory effort, No retractions, No use of accessory muscles and clear to auscultation bilaterally AUSCULTATION: clear to auscultation bilaterally Cardio: COMMON NORMALS: regular rate, regular rhythm, S1 normal heart sound present and S2 normal heart sound present RATE: regular rate RHYTHM: regular rhythm HEART SOUNDS: S1 normal heart sound present and S2 normal heart sound present GI: COMMON NORMALS: Normal to inspection, nondistended, normoactive bowel sounds present and non-tender Extremity: COMMON NORMALS: no pedal edema Neuro: COMMON NORMALS: patient oriented x3 Psych: COMMON NORMALS: mental status grossly normal Discharge Data Studies Completed and Pending Completed Studies During Hospitalization Category Date Time Status CT angio chest PE protcl [id number] Stat Cat Scan 07/24/22 15:07 Completed XR chest 1V portable [id number] Stat Exams 07/24/22 12:34 Completed CV. echo complete* [id number] Routine Ultrasound 07/25/22 20:53 Completed Pending at discharge Category Date Time Status Blood Culture Stat Lab 07/24/22 13:05 Results C Reactive Protein AM LABS Lab 07/27/22 04:00 Ordered C Reactive Protein AM LABS Lab 07/28/22 04:00 Ordered Complete Blood Count w/Auto AM LABS Lab 07/27/22 04:00 Ordered Complete Blood Count w/Auto AM LABS Lab 07/28/22 04:00 Ordered Comprehensive Metabolic Panel AM LABS Lab 07/27/22 04:00 Ordered Comprehensive Metabolic Panel AM LABS Lab 07/28/22 04:00 Ordered Magnesium AM LABS Lab 07/27/22 04:00 Ordered Magnesium AM LABS Lab 07/28/22 04:00 Ordered NT Pro B Type Natriuretic Pept QAM Lab 07/27/22 06:00 Ordered NT Pro B Type Natriuretic Pept QAM Lab 07/28/22 06:00 Ordered Phosphorus AM LABS Lab 07/27/22 04:00 Ordered Phosphorus AM LABS Lab 07/28/22 04:00 Ordered Procalcitonin AM LABS Lab 07/27/22 04:00 Ordered Procalcitonin AM LABS Lab 07/28/22 04:00 Ordered Sputum Culture and Gram Stain Stat Lab 07/24/22 17:30 Results Radiology Impressions Chest X-Ray 07/24/22 12:34 Impression: 1. Patchy opacity in periphery of left lung and recommend PA and lateral chest and probable CT chest 2. Atherosclerosis. Chest CTA 07/24/22 15:07 IMPRESSION: 1. Negative CT angiogram of the chest. No evidence of acute pulmonary embolism. 2. 8 cm masslike consolidation left upper lobe concerning for bronchogenic malignancy with rounded pneumonia felt less likely. 3. Mild mediastinal lymphadenopathy possibly metastatic in nature. Laboratory Results WBC 9.2 10^3/uL (4.0-10.0) 07/26/22 02:07 RBC 4.24 10^6/uL (4.1-5.3) 07/26/22 02:07 Hgb 11.8 g/dL (11.7-16.6) 07/26/22 02:07 Hct 36.0 % (42.0-52.0) L 07/26/22 02:07 MCV 84.9 fl (80-94) 07/26/22 02:07 MCH 27.8 pg (28.0-34.0) L 07/26/22 02:07 MCHC 32.8 g/dL (30.0-36.0) 07/26/22 02:07 RDW 13.0 % (12.1-15.1) 07/26/22 02:07 Plt Count 240 10^3/cmm (130-400) 07/26/22 02:07 MPV 9.5 fL (7.4-10.4) 07/26/22 02:07 Neut % (Auto) 77.7 % 07/26/22 02:07 Lymph % (Auto) 13.3 % 07/26/22 02:07 [place] % (Auto) 7.6 % 07/26/22 02:07 Eos % (Auto) 0.9 % 07/26/22 02:07 Baso % (Auto) 0.2 % 07/26/22 02:07 Neut # (Auto) 7.15 10^3/uL (1.8-7.7) 07/26/22 02:07 Lymph # (Auto) 1.2 10^3/uL (0.8-4.8) 07/26/22 02:07 [place] # (Auto) 0.7 10^3/uL (0.2-0.9) 07/26/22 02:07 Eos # (Auto) 0.1 10^3/uL (0.0-0.8) 07/26/22 02:07 Baso # (Auto) 0.0 10^3/uL (0.0-0.1) 07/26/22 02:07 Nucleated RBC % (auto) 0 % 07/26/22 02:07 Nucleated RBCs # 0.0 /100WBC 07/26/22 02:07 Sodium 137 mmol/L (136-145) 07/26/22 02:07 Potassium 3.8 mmol/L (3.5-5.1) 07/26/22 02:07 Chloride 105 mmol/L (98-107) 07/26/22 02:07 Carbon Dioxide 21 mmol/L (22-29) L 07/26/22 02:07 Anion Gap 14.8 (5-19) 07/26/22 02:07 BUN 15 mg/dL (8-23) 07/26/22 02:07 Creatinine 0.9 mg/dL (0.7-1.2) 07/26/22 02:07 GFR Calculation 85.5 mL/min (90-130) L 07/26/22 02:07 Glucose 102 mg/dL (65-115) 07/26/22 02:07 POC Glucose 129 mg/dL (70-110) H 07/24/22 20:16 Estimat Average Glucose 128 07/24/22 13:10 Hemoglobin A1c 6.1 % (4.0-6.0) H 07/24/22 13:10 Calculated Osmolality 285 mOsm/kg (285-295) 07/26/22 02:07 Lactic Acid 1.5 mmol/L (0.5-2.2) 07/24/22 14:58 Lactate 2.6 mmol/L (0.5-2.2) H 07/24/22 13:10 Calcium 8.0 mg/dL (8.5-10.5) L 07/26/22 02:07 Phosphorus 1.8 mg/dL (2.5-4.5) L 07/26/22 02:07 Magnesium 2.1 mg/dL (1.7-2.3) 07/26/22 02:07 Total Bilirubin 0.4 mg/dL (0.15-1.2) 07/26/22 02:07 AST 18 U/L (0-40) 07/26/22 02:07 ALT 20 U/L (0-41) 07/26/22 02:07 Alkaline Phosphatase 63 U/L (40-130) 07/26/22 02:07 Troponin T Baseline 11 ng/L (0-15) 07/24/22 13:10 Troponin T 120 Minute 13.45 ng/L (0-15) 07/24/22 15:24 Delta Troponin T 2.45 ABS# (0-10) 07/24/22 15:24 Troponin T Hi Sens 6Hr 13.82 ng/L (0-15) 07/24/22 19:48 Troponin T Hi Sens 6Hr Delta 0.37 ng/L (0-12) 07/24/22 19:48 C-Reactive Protein 176.4 mg/L (0.0-4.9) H 07/26/22 02:07 NT-Pro-B Natriuret Pep 565 pg/mL (0-125) H 07/26/22 02:07 Total Protein 5.2 g/dL (6.6-8.7) L 07/26/22 02:07 Albumin 3.0 g/dL (3.5-5.2) L 07/26/22 02:07 Globulin 2.2 g/dL (1.3-4.6) 07/26/22 02:07 Triglycerides 92 mg/dL (0-150) 07/24/22 13:10 Cholesterol 99 mg/dL (0-200) 07/24/22 13:10 LDL Cholesterol, Calc 34 mg/dL (50-129) L 07/24/22 13:10 HDL Cholesterol 47 mg/dL (60-100) L 07/24/22 13:10 LDL/HDL Ratio 0.72 RATIO (0.00-3.22) 07/24/22 13:10 Cholesterol/HDL Ratio 2.11 mg/dL (1.0-5.00) 07/24/22 13:10 Procalcitonin 2.90 ng/mL (0-0.5) H 07/26/22 02:07 TSH 1.97 uIU/mL (0.27-4.20) 07/24/22 13:10 Urine Color Dark yellow (Yellow) 07/24/22 14:37 Urine Appearance Clear (CLEAR) 07/24/22 14:37 Urine pH 7 (5-7) 07/24/22 14:37 Ur Specific [place] 1.005 (1.005-1.030) 07/24/22 14:37 Urine Protein 1+ (Negative) H 07/24/22 14:37 Urine Glucose (UA) Norm (Normal) 07/24/22 14:37 Urine Ketones Negative (Negative) 07/24/22 14:37 Urine Blood 2+ (Negative) H 07/24/22 14:37 Urine Nitrate Negative (Negative) 07/24/22 14:37 Urine Bilirubin Neg (Negative) 07/24/22 14:37 Urine Urobilinogen 4 mg/dL (Negative) H 07/24/22 14:37 Ur Leukocyte Esterase Negative (Negative) 07/24/22 14:37 Urine RBC Rare /hpf (0-2) 07/24/22 14:37 Urine WBC Rare /hpf (0-5) 07/24/22 14:37 Ur Squamous Epith Cells 0-4 /hpf (0-5) H 07/24/22 14:37 Amorphous Sediment Trace /hpf 07/24/22 14:37 Urine Bacteria None /hpf (NONE) 07/24/22 14:37 Hyaline Casts Rare /lpf 07/24/22 14:37 Vancomycin Trough 5.5 ug/mL (10-15) L 07/26/22 09:28 Coronavirus 229E (PCR) Not detected (NOT DETECT) 07/24/22 17:30 Influenza Type A Ag negative (Negative) 07/24/22 17:30 Influenza Type B Ag negative (Negative) 07/24/22 17:30 SARS-CoV-2 (PCR) Not detected (NOT DETECT) 07/24/22 17:30 Vitals Last Vital Signs Temp 98.4 F 07/26/22 11:32 Pulse 83 07/26/22 11:32 Resp 18 07/26/22 11:32 BP 160/77 07/26/22 11:32 Pulse Ox 94 07/26/22 11:32 O2 Del Method 07/26/22 11:32 O2 Flow Rate 2 07/25/22 04:00 Discharge Plan Discharge Patient Disposition: Home Condition: Stable Prescriptions: New diltiazem HCl 120 mg capsule,extended release 24 hr 120 mg PO DAILY 30 Days Qty: 30 0RF doxycycline hyclate 100 mg capsule 100 mg PO BID 7 Days Qty: 14 0RF benzonatate 100 mg Capsule 100 mg PO TID PRN (Reason: Cough) 7 Days Qty: 21 0RF Eliquis 5 mg Tablet 5 mg PO BID@0900,2100 30 Days Qty: 60 0RF amoxicillin-pot clavulanate 875-125 mg tablet 1 tab PO BID 7 Days Qty: 14 0RF albuterol sulfate 90 mcg/actuation HFA aerosol inhaler 1 inh inhalation QID PRN (Reason: shortness of breath or wheezing) Qty: 8.5 0RF Continued atorvastatin 40 mg tablet 40 mg PO DAILY gabapentin 100 mg capsule 100 mg PO DAILY sertraline 50 mg tablet 50 mg PO DAILY nitroglycerin 0.4 mg tablet, sublingual 0.4 mg sublingual Q5M PRN (Reason: chest pain) Qty: 30 6RF Rx Instructions: do not exceed 3 doses per episode aspirin 81 mg tablet,delayed release (DR/EC) 81 mg PO DAILY Qty: 90 3RF metoprolol succinate 25 mg tablet extended release 24 hr 25 mg PO DAILY Qty: 90 3RF Discontinued nifedipine 60 mg tablet extended release 60 mg PO DAILY Qty: 90 3RF Discharge Orders: Discharge Order (Routine); Ordered 07/26/22 Ordered By: Rich Erazo Referrals: Bakari Zazueta DO [Primary Care Provider] - 07/30/22 2:30 pm ArchanarRashad MD [Physician] - 6 Weeks (lung mass) Cirilo Francis MD [Physician] - 2 weeks Discharge Diet: Cardiac Discharge Activity: Resume usual activity Patient Instructions: Opioid Safety Activity Restrictions/Additional Instructions: - Monitor for bloody or black stools, have your primary care provider recheck your hemoglobin in 1 week -Take antibiotics as prescribed -Please see cardiology in 2 weeks -Please see pulmonary in 6 weeks Discharge Attestations Time Spent in Discharge Care*: greater than 30 min Quality Metrics Clinical Quality Measures [ No reported AMI, CVA or VTE this stay] Coding Level of Care Code 38757 Total time (in minutes) for Discharge: 40 Diagnoses Pneumonia J18.9 Sepsis A41.9 Exertional shortness of breath R06.02 Hyperlipidemia E78.5 Hypertension I10 CAD (coronary artery disease) I25.10 Goals of care, counseling/discussion Z71.89 Atrial fibrillation with RVR I48.91 Lung mass R91.8 Acute respiratory failure with hypoxia J96.01
[2022-07-26 13:27] VITALS: BP 160/77; PULSE 83; RESP 18; TEMP 36.9; O2SAT 94
== END 2022-07-26 13:00 | disposition home or self-care (01) | DRG 193 ==
LOC: ER 15:40 → MEDSURG 16:45 → ICU 20:28 → MEDSURG 07-25 14:16
PROVIDERS: Student in an Organized Health Care Education/Training Program; Admitting Provider Family Medicine; Emergency Provider Emergency Medicine; PCP Family Medicine; Visit Provider Family Medicine
DX: J18.9 Pneumonia, unspecified organism (principal); A41.9 Sepsis, unspecified organism; J96.01 Acute respiratory failure with hypoxia; I10 Essential (primary) hypertension; I25.10 Atherosclerotic heart disease of native coronary artery without angina pectoris; E78.5 Hyperlipidemia, unspecified; R91.8 Other nonspecific abnormal finding of lung field; I48.91 Unspecified atrial fibrillation; R61 Generalized hyperhidrosis; R00.0 Tachycardia, unspecified; R59.0 Localized enlarged lymph nodes; Z95.5 Presence of coronary angioplasty implant and graft; Z79.82 Long term (current) use of aspirin
CPT/HCPCS: 36415; 36416; 71045; 71275; 80048; 80053; 80061; 80202; 81001; 82962; 83036; 83605; 83735; 83880; 84100; 84132; 84145; 84443; 84484; 85025; 86140; 86403; 87040; 87070; 87205; 87635; 87641; 87804; 93005; 93306; 96365; 96367; 96372; 96375; 99285; C9113; J0696; J1650; J2543; J3370; J3490; J7030; Q9967

== ENCOUNTER → 2022-08-12 10:26 | Outpatient (BNVA) | payer MEDICARE, SELFPAY | PROVIDERS: PCP Family Medicine; Visit Provider Nurse Practitioner Family | DX: I48.91 Unspecified atrial fibrillation (principal); I10 Essential (primary) hypertension; Z79.01 Long term (current) use of anticoagulants; Z79.82 Long term (current) use of aspirin | CPT/HCPCS: 93005; 99213 ==

== ENCOUNTER 2022-09-10 14:44 | Outpatient (CLI) | payer MEDICARE, SELFPAY ==
--- NOTE | 2022-09-10 15:00 | CT_ITS ---
WS: [id number] CT CHEST TECHNIQUE: Contrast enhanced CT of the chest with coronal and sagittal reformatted images. CLINICAL INFORMATION: lung mass COMPARISON: None. DLP: 499.[address] scans at [facility] use at least one of these dose optimization techniques: automated e xposure control; mA and/or kV adjustment per patient size (includes targeted exams where dose is matc hed to clinical indication); or iterative reconstruction. FINDINGS: Normal caliber thoracic aorta. Normal descending thoracic aorta. Coronary calcification. Prominent AP window and RIGHT paratracheal lymph nodes largest RIGHT paratracheal unchanged measuring 13 mm. Prev iously described consolidative mass in the LEFT upper lobe has resolved since the prior examination c ompatible with pneumonia. A few scattered calcified granulomas. Diffuse fatty infiltration liver. Nor mal GE junction. Adrenal glands are normal. Upper abdominal aorta is normal. No axillary lymphadenopa thy. Hypertrophic changes thoracic spine. No other suspicious pulmonary parenchymal opacities. CT/CT chest w con* [id number] IMPRESSION: 1. Previously described LEFT upper lobe consolidative mass has resolved compar ed to previous. No suspicious pulmonary opacities today. 2. A few prominent AP window and RIGHT peritracheal lymph nodes largest measur ing 13 mm appear unchanged compared to previous nonspecific but likely reactive . 3. Diffuse fatty infiltration liver. 4. Vascular calcification including coronary.
[2022-09-10] MEDS: iohexol 350 mg/mL 100 mL Btl IV (15:25)
== END 2022-09-10 14:45 | disposition home or self-care (01) ==
PROVIDERS: PCP Family Medicine; Visit Provider Internal Medicine Pulmonary Disease
DX: R91.8 Other nonspecific abnormal finding of lung field (principal)
CPT/HCPCS: 71260; 99204; Q9967

== ENCOUNTER → 2022-11-14 14:11 | Outpatient (BNVA) | payer MEDICARE, SELFPAY | PROVIDERS: PCP Family Medicine; Visit Provider Internal Medicine Cardiovascular Disease | DX: R06.02 Shortness of breath (principal); I25.10 Atherosclerotic heart disease of native coronary artery without angina pectoris; I10 Essential (primary) hypertension; E78.5 Hyperlipidemia, unspecified; I48.91 Unspecified atrial fibrillation; Z79.01 Long term (current) use of anticoagulants | CPT/HCPCS: 99214 ==

== ENCOUNTER → 2023-03-06 11:32 | Outpatient (BNVA) | payer MEDICARE, SELFPAY | PROVIDERS: PCP Family Medicine; Visit Provider Podiatrist Foot & Ankle Surgery | DX: M84.373A Stress fracture, unspecified ankle, initial encounter for fracture; M95.8 Other specified acquired deformities of musculoskeletal system; M19.072 Primary osteoarthritis, left ankle and foot; M76.72 Peroneal tendinitis, left leg | CPT/HCPCS: 73630; 99203 ==

== ENCOUNTER 2023-04-07 07:52 | Outpatient (CLI) | payer MEDICARE, SELFPAY ==
--- NOTE | 2023-04-07 08:45 | MR_ITS ---
WS: [id number] EXAMINATION: MR ankle LT wo con* [id number] ORDER DATE: 04/07/2023 8:12 AM COMPARISON: None. HISTORY: Stress fracture CONTRAST: None. TECHNIQUE: Axial proton density fat sat, axial T1, sagittal proton density, sagittal STIR, coronal T2 fat sat, and coronal T1 sequences performed. After contrast, axial T1 fat sat, coronal T1 fat sat, and sagittal T1 fat sat were performed. FINDINGS: Some images degraded by motion. Bunion deformity with mild hallux valgus. Osteopenia. Plantar calcaneal spurring. Achilles enthesophy te. Diffuse thickening of the lateral insertion plantar aponeurosis measuring 7.5 mm. Surrounding flu id and edema extending to the lateral calcaneal insertion. Associated edema in the underlying calcane us. Findings compatible with plantar fasciitis. Mild degenerative arthritis ankle mortise with subchondral cystic changes. Achilles tendon is intact. Trace fluid in the retrocalcaneal bursa. Achilles tendinosis with a small amount of peritendinous fl uid and edema. Normal peroneal longus and brevis. Tenosynovitis involving the tibialis anterior and flexor compartme nt tendons. IMPRESSION: Some images degraded by motion. 1. Findings of planter fasciitis involving the lateral plantar insertion. Associated surrounding sof t tissue edema with a small amount of fluid. 2. Mild underlying edema in the associated calcaneus. 3. Plantar calcaneal spurring. Achilles enthesophyte. 4. Distal Achilles is intact. Achilles tendinopathy with peritendinous edema 5. Tenosynovitis tibialis anterior and flexor compartment tendons.
== END 2023-04-07 07:53 | disposition home or self-care (01) ==
LOC: RAD 07:52
PROVIDERS: PCP Family Medicine; Visit Provider Podiatrist Foot & Ankle Surgery
DX: M84.373A Stress fracture, unspecified ankle, initial encounter for fracture (principal); M95.8 Other specified acquired deformities of musculoskeletal system; M72.2 Plantar fascial fibromatosis; M77.32 Calcaneal spur, left foot; M77.52 Other enthesopathy of left foot and ankle; M65.872 Other synovitis and tenosynovitis, left ankle and foot
CPT/HCPCS: 73721

== ENCOUNTER → 2023-07-31 10:09 | Outpatient (BNVA) | payer MEDICARE, SELFPAY | PROVIDERS: PCP Family Medicine; Visit Provider Nurse Practitioner Family | DX: I25.10 Atherosclerotic heart disease of native coronary artery without angina pectoris (principal); I10 Essential (primary) hypertension; I48.0 Paroxysmal atrial fibrillation; R94.31 Abnormal electrocardiogram [ECG] [EKG] | CPT/HCPCS: 93005; 99214 ==

== ENCOUNTER 2023-08-27 07:52 | Outpatient (CLI) | payer MEDICARE, SELFPAY ==
--- NOTE | 2023-08-27 08:01 | NMCV_ITS ---
NM xander perf SPECT r/s* [id number] Tulio Brown Age: 62 Gender: M : 1960 Exam Date: 08/27/2023 08:35 Ordering Phys: Maru Villagran Technologist: MAGNUS Stone Exam Location: [facility] Indications: ATHEROSCLEROTIC HEART DISEASE STRESS TEST Please [facility] IMAGE PROTOCOL Rest/Stress 1 Lexiscan Day Radiopharmaceutical Dose (mCi) Administration Site Administered by Rest: Tc-99m 10.7 IV MAGNUS Holguin Sestamibi Stress:Tc-99m 32.6 IV MAGNUS Holguin Sestamibi Rest: 27-Aug-2023 60 Discovery 630 Stress: 27-Aug-2023 30 Discovery 630 0.4mg Lexiscan. Images obtained in supine and prone position. SPECT RESULTS Technical Quality: Excellent Raw Data Analysis: Normal Image Corrections: No attenuation or motion correction applied Summed Stress Score: 1 Summed Rest Score: 0 Summed Difference Score: 1 PERFUSION FINDINGS SPECT images demonstrate homogeneous tracer distribution throughout the myocardium. FUNCTIONAL RESULTS (calculated via Gated SPECT) Stress Image LV EF (%): 64 Stress EDV (mL):123 TID: 1.08 Stress ESV (mL):44 FUNCTIONAL FINDINGS: There is normal left ventricular systolic function. IMPRESSIONS 1. Normal myocardial perfusion imaging with no evidence of ischemia 2. LV systolic function is normal Harvey Farrell MD (Electronically Signed) Final Date: 30 August 2023 14:39 S
--- NOTE | 2023-08-27 08:01 | ECG_ITS ---
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 Interpretive Statements NAME OF STUDY: LEXISCAN SESTAMIBI STRESS TEST INDICATION: [Chest Pain/AFIB WITH RVR, ] Procedure: At the baseline, the blood pressure was 166/90 mmHg with a heart rate of 58 bpm. The electrocardiogram showed sinus bradycardia, normal axis with normal ST and T's. The Lexiscan was infused over a period of 20 seconds. A total of 0.4 mg of Lexiscan was infused. The stress phase was continued for a total of 5 minutes. Heart rate was at the end of stress phase was 69 bpm and a blood pressure of 149/97 mmHg. The EKG at the peak infusion revealed normal sinus rhythm with no significant ST-T wave changes. Sestamibi was injected 20 seconds after the Lexiscan infusion. Blood pressure at the end of recovery phase was 156/93 mmHg with a heart rate of 68 bpm. Conclusion: 1. Normal EKG response to Lexiscan infusion 2. No Lexiscan induced chest pain or cardiac arrhythmia. 3. Normal blood pressure and heart rate response. 4. Sestamibi/sestamibi perfusion scan pending; see separate report. Electronically Signed On 09-04-2023 12:42:43 CDT by Harvey Farrell M.D. [id number]
[2023-08-27 08:11] VITALS: BMI 37.8
[2023-08-27] MEDS: regadenoson 0.4 Mg/5 ml Syringe 0.400000000000000022 MG IVP (09:18)
== END 2023-08-27 07:53 | disposition home or self-care (01) ==
PROVIDERS: PCP Family Medicine; Visit Provider Nurse Practitioner Family
DX: I25.10 Atherosclerotic heart disease of native coronary artery without angina pectoris (principal)
CPT/HCPCS: 36415; 78452; 96374; A9500; J2785

== ENCOUNTER 2023-08-30 22:36 | Emergency (ER) | payer MEDICARE, SELFPAY ==
[2023-08-30 22:37] VITALS: PULSE 88; RESP 16; TEMP 37.1; O2SAT 94; BMI 37.3
[2023-08-30 22:45] VITALS: BP 149/95
--- NOTE | 2023-08-30 22:49 | XRR_ITS ---
PROCEDURE INFORMATION: Exam: XR Chest Exam date and time: 08/30/2023 10:52 PM Age: 62 years old Clinical indication: Chest pressure; Prior surgery; Surgery date: 6+ months; Surgery type: Coronary stent. Cervical fusion; Patient HX: C/O chest pain. History of afib rvr. TECHNIQUE: Imaging protocol: Radiologic exam of the chest. Views: 1 view. COMPARISON: CT chest w con* [id number] 09/10/2022 3:21 PM FINDINGS: Lungs: Unremarkable. No consolidation. Pleural spaces: Unremarkable. No pleural effusion. No pneumothorax. Heart/Mediastinum: Unremarkable. No cardiomegaly. Bones/joints: Unremarkable. XR/XR chest 1V portable [id number] IMPRESSION: No acute findings.
--- NOTE | 2023-08-30 22:49 | ECG_ITS ---
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 Measurements Intervals [place]as[place] Rate: 92 P: 66 AZ: 147 QRS: 38 QRSD: 71 T: 62 QT: 357 QTc: 443 Interpretive Statements SINUS RHYTHM Compared to ECG 07/31/2023 10:15:06 Short [place] interval no longer present T-wave abnormality no longer present Electronically Signed On 08-31-2023 20:48:27 CDT by Cirilo Franics M.D. [id number] f
[2023-08-30 22:57] LABS: Basophils # 0.1 10^3/uL (0.0-0.1); Basophils % 0.7 %; Eosinophils # 0.5 10^3/uL (0.0-0.8); Eosinophils % 7.1 %; Hematocrit 41.5 % (37-53); Lymphocytes # 2.5 10^3/uL (0.8-4.8); Lymphocytes % 34.6 %; Mean Corpuscular Hemoglobin 28.7 pg (27-33); Mean Platelet Volume 9.7 fL (7.4-10.4); Monocytes # 0.6 10^3/uL (0.2-0.9); Monocytes % 8.3 %; Neutrophils # 3.56 10^3/uL (1.8-7.7); Neutrophils % 49.2 %; Nucleated Red Blood Cells % 0 %; Platelet Count 311 10^3/cmm (157-399); Red Blood Count 4.77 10^6/uL (3.85-5.65); Red Cell Distribution Width 13.4 % (12.1-15.1); White Blood Count 7.23 10^3/uL (3.29-11.43)
[2023-08-30 23:00] VITALS: BP 144/90; PULSE 90; RESP 18; O2SAT 96
--- NOTE | 2023-08-30 23:07 | ED_ITS ---
HPI - Chest Pain 2 General: Chief Complaint: Chest Pain Stated Complaint: CP Time Seen by Provider: 08/30/23 22:45 History of Present Illness: 62-year-old gentleman with a history of atrial fibrillation and coronary disease. He states that his last stents were placed likely around 5 years ago at [facility] in [place]. He had a stress test this past Friday. He presents with chest discomfort at home that started while he was at rest. He had palpitations as well, and some shortness of breath. He took 1 nitroglycerin. He was given another nitroglycerin by EMS, and baby aspirin. He converted en route to the hospital. He is no longer in any pain. He says that he feels good currently. Associated symptoms: Reports dyspnea and palpitations; Deny abdominal pain, fever(s), nausea or vomiting Review of Systems 2 Const: Denies: fever(s), chills or body aches Eyes: Denies: change in vision Card: Reports: chest pain, palpitations and irregular heart rhythm; Denies: edema or swelling of feet/ankles Resp: Reports: dyspnea; Denies: productive cough, non-productive cough or wheezing GI: Denies: abdominal pain, nausea, vomiting, diarrhea or hematochezia Skin/Breast: Denies: rash Neuro: Denies: headache(s), weakness in extremities, dizziness or confusion PFSH ED 2 PFSH: Medical History Atrial fibrillation Hyperlipidemia CAD (coronary artery disease) Hypertension Testicular hypogonadism Surgical History H/O neck surgery H/O hand surgery H/O heart artery stent Family History Father , at age 72 Brain aneurysm Hypertension Mother , at age 50 Cancer stomach Heart disease Social History Smoking and tobacco/nicotine status: never used tobacco/nicotine Alcohol intake: current Alcohol intake frequency: 0-2 Drinks per Day Marital status: Current occupational status: retired Physical Exam 2 Const: COMMON NORMALS: no acute distress GENERAL APPEARANCE: cooperative; not ill appearing and not frail appearing HENMT: COMMON NORMALS: normocephalic, atraumatic and Normal external nose present HEAD & SCALP: normocephalic and atraumatic FACE & SINUS: normal facial exam and face symmetric NOSE: Normal external nose present Eye: COMMON NORMALS: Equal, round and reactive pupils present and EOMs intact bilaterally PUPIL: Yes Equal, round and reactive pupils present Neck/C-Spine: GENERAL: Yes trachea midline Chest: CHEST: Yes Symmetrical chest wall rise Resp: COMMON NORMALS: normal respiratory effort, No retractions, No use of accessory muscles and clear to auscultation bilaterally AUSCULTATION: clear to auscultation bilaterally Cardio: COMMON NORMALS: regular rate and regular rhythm RATE: regular rate RHYTHM: regular rhythm GI: COMMON NORMALS: Normal to inspection, nondistended, normoactive bowel sounds present Extremity: COMMON NORMALS: no pedal edema Neuro: RHYS COMA SCALE: document GCS findings Lovell coma scale eye opening: Spontaneous Rhys coma scale verbal response: Orientated Lovell coma scale motor response: Obey commands Rhys coma scale total score: 15 S ENSORY EXAM: Yes extremities (intact) Psych: COMMON NORMALS: speech normal SPEECH: Yes normal speech Skin: COMMON NORMALS: no rashes or lesions noted GENERAL SKIN EXAM: no rashes or lesions noted Course 2 Vital Signs: Vital signs: Vital Signs Temperature 98.8 F 08/30/23 22:37 Pulse Rate 88 08/31/23 01:48 Respiratory Rate 20 H 08/31/23 01:48 Blood Pressure 150/88 08/31/23 01:48 Pulse Oximetry 98 08/31/23 01:48 Oxygen Delivery Me thod Room Air 08/30/23 22:37 MDM - Chest Pain Medical Decision Making Spontaneous conversion of atrial fibrillation with rapid ventricular rate and route to the hospital. This was after administration of nitroglycerin and aspirin. CBC is normal. Other laboratories pending. Chest x-ray is not remarkable Second troponin increased delta is 15.6. Although this is an increase, it is likely demand ischemia from right, which was sustained above 150 for a couple of hours. This patient had a normal nuclear stress test exam on Friday. With minimal delta troponin, no ST wave changes on EKGs, and a normal stress test this week, with resolution of his pain with resolution of A-fib with RVR and spontaneous cardioversion, we will allow home. He will return for any worsening of symptoms or return of symptoms. Lab Data 08/30/23 22:45 08/30/23 22:45 Radiology Impressions Chest X-Ray 08/30/23 22:49 IMPRESSION: No acute findings. Laboratory Results WBC 7.23 10^3/uL (3.29-11.43) 08/30/23 22:45 RBC 4.77 10^6/uL (3.85-5.65) 08/30/23 22:45 Hgb 13.70 g/dL (11.27-16.99) 08/30/23 22:45 Hct 41.5 % (37-53) 08/30/23 22:45 MCV 87.0 fl (82-101) 08/30/23 22:45 MCH 28.7 pg (27-33) 08/30/23 22:45 MCHC 33.0 g/dL (30-55) 08/30/23 22:45 RDW 13.4 % (12.1-15.1) 08/30/23 22:45 Plt Count 311 10^3/cmm (157-399) 08/30/23 22:45 MPV 9.7 fL (7.4-10.4) 08/30/23 22:45 Neut % (Auto) 49.2 % 08/30/23 22:45 Lymph % (Auto) 34.6 % 08/30/23 22:45 Beaver % (Auto) 8.3 % 08/30/23 22:45 Eos % (Auto) 7.1 % 08/30/23 22:45 Baso % (Auto) 0.7 % 08/30/23:45 Neut # (Auto) 3.56 10^3/uL (1.8-7.7) 08/30/23 22:45 Lymph # (Auto) 2.5 10^3/uL (0.8-4.8) 08/30/23 22:45 Beaver # (Auto) 0.6 10^3/uL (0.2-0.9) 08/30/23 22:45 Eos # (Auto) 0.5 10^3/uL (0.0-0.8) 08/30/23 22:45 Baso # (Auto) 0.1 10^3/uL (0.0-0.1) 08/30/23 22:45 Nucleated RBC % (auto) 0 % 08/30/23 22:45 Nucleated RBCs # 0.0 /100WBC 08/30/23 22:45 Sodium 141 mmol/L (136-145) 08/30/23 22:45 Potassium 3.6 mmol/L (3.5-5.1) 08/30/23 22:45 Chloride 107 mmol/L (98-107) 08/30/23 22:45 Carbon Dioxide 22 mmol/L (22-29) 08/30/23 22:45 Anion Gap 15.6 (5-19) 08/30/23 22:45 BUN 18 mg/dL (8-23) 08/30/23 22:45 Creatinine 1.0 mg/dL (0.7-1.2) 08/30/23 22:45 GFR Calculation 75.5 mL/min (90-130) L 08/30/23 22:45 Glucose 147 mg/dL (65-115) H 08/30/23 22:45 Calculated Osmolality 297 mOsm/kg (285-295) H 08/30/23 22:45 Calcium 9.4 mg/dL (8.5-10.5) 08/30/23 22:45 Magnesium 1.9 mg/dL (1.7-2.3) 08/30/23 22:59 Troponin T Baseline 13 ng/L (0-15) 08/30/23 22:45 Troponin T 120 Minute 28.61 ng/L (0-15) H 08/31/23 01:10 Delta Troponin T 15.61 ABS# (0-10) H* 08/31/23 01:10 NT-Pro-B Natriuret Pep 59 pg/mL (0-125) 08/30/23 22:59 TSH 4.85 uIU/mL (0.27-4.20) H 08/30/23 22:59 All radiology interpretation(s) finalized by discharge Discharge Plan Discharge Patient Disposition: Home Clinical Impression: Chest pain, Atrial fibrillation with RVR Condition: Stable Prescriptions: No Action atorvastatin 40 mg tablet 40 mg PO DAILY isosorbide mononitrate 30 mg tablet extended release 24 hr 30 mg PO DAILY Eliquis 5 mg tablet 5 mg PO BID@0900,2100 Qty: 180 3RF sertraline 50 mg tablet 50 mg PO DAILY aspirin 81 mg tablet,delayed release (DR/EC) 81 mg PO DAILY Qty: 90 3RF amoxicillin-pot clavulanate 500-125 mg tablet PO metoprolol succinate 100 mg tablet extended release 24 hr 100 mg PO DAILY Qty: 90 3RF nitroglycerin 0.4 mg tablet, sublingual 0.4 mg sublingual Q5M PRN (Reason: chest pain) Qty: 30 6RF Rx Instructions: do not exceed 3 doses per episode albuterol sulfate 90 mcg/actuation HFA aerosol inhaler 1 inh inhalation QID PRN (Reason: shortness of breath or wheezing) Qty: 8.5 0RF Discharge Orders: Discharge ED (Routine); Ordered 08/31/23 Ordered By: Néstor Pino Referrals: Bakari Zazueta DO [Primary Care Provider] - 1-3 days Patient Instructions: A-fib (Atrial Fibrillation) (ED), Chest Pain (ED), Opioid Safety, Pain Management Activity Restrictions/Additional Instructions: Return for any repeated episodes of chest discomfort, shortness of breath, fever, other concerning symptoms. See your doctor next week. Give them a call Friday morning Coding Level of Care Code ED Flake Or Shred Roll Operator for Trenton Meza
[2023-08-30 23:12] LABS: Troponin(5th) Baseline 13 ng/L (0-15)
[2023-08-30 23:14] LABS: Anion Gap 15.6 (5-19); Blood Urea Nitrogen 18 mg/dL (8-23); Calcium 9.4 mg/dL (8.5-10.5); Carbon Dioxide 22 mmol/L (22-29); Chloride 107 mmol/L (98-107); Creatinine Clr Calc Pharmacy 85.7609; Glomerular Filtration Rate 75.5 mL/min (90-130); Glucose 147 mg/dL (65-115); Osmolality Calculated 297 mOsm/kg (285-295); Potassium 3.6 mmol/L (3.5-5.1); Sodium 141 mmol/L (136-145)
[2023-08-30 23:30] VITALS: PULSE 82; RESP 19; O2SAT 95
[2023-08-30 23:41] LABS: Magnesium 1.9 mg/dL (1.7-2.3); NT Pro B Type Natriuretic Pept 59 pg/mL (0-125); Thyroid Stimulating Hormone 4.85 uIU/mL (0.27-4.20)
[2023-08-31] VITALS: PULSE 74; RESP 19; O2SAT 99
[2023-08-31 01:00] VITALS: BP 150/88; PULSE 78; RESP 19; O2SAT 97
[2023-08-31 01:32] LABS: Troponin 5 2HR 28.61 ng/L (0-15)
[2023-08-31 01:34] LABS: Troponin 5 2HR Delta 15.61 ABS# (0-10)
[2023-08-31 01:48] VITALS: BP 150/88; PULSE 88; RESP 20; O2SAT 98
== END 2023-08-31 01:52 | disposition home or self-care (01) ==
PROVIDERS: Emergency Provider Emergency Medicine; PCP Family Medicine
DX: R07.9 Chest pain, unspecified (principal); I48.20 Chronic atrial fibrillation, unspecified; Z79.01 Long term (current) use of anticoagulants; Z79.82 Long term (current) use of aspirin; E78.5 Hyperlipidemia, unspecified; I25.10 Atherosclerotic heart disease of native coronary artery without angina pectoris; I10 Essential (primary) hypertension
CPT/HCPCS: 71045; 80048; 83735; 83880; 84443; 84484; 85025; 93005; 99285

== ENCOUNTER → 2023-09-16 09:23 | Outpatient (BNVA) | payer MEDICARE, SELFPAY | PROVIDERS: PCP Family Medicine; Visit Provider Nurse Practitioner Family | DX: I48.0 Paroxysmal atrial fibrillation (principal); I25.118 Atherosclerotic heart disease of native coronary artery with other forms of angina pectoris; I10 Essential (primary) hypertension; Z87.891 Personal history of nicotine dependence; R94.31 Abnormal electrocardiogram [ECG] [EKG] | CPT/HCPCS: 93005; 99214 ==

== ENCOUNTER → 2023-10-09 12:52 | Outpatient (BNVA) | payer MEDICARE, SELFPAY | PROVIDERS: PCP Family Medicine; Visit Provider Internal Medicine | DX: R06.02 Shortness of breath (principal); I25.118 Atherosclerotic heart disease of native coronary artery with other forms of angina pectoris; I10 Essential (primary) hypertension; E78.5 Hyperlipidemia, unspecified; I48.0 Paroxysmal atrial fibrillation; Z87.891 Personal history of nicotine dependence; Z79.01 Long term (current) use of anticoagulants | CPT/HCPCS: 99214 ==

== ENCOUNTER → 2024-03-30 10:39 | Outpatient (BNVA) | payer MEDICARE, SELFPAY | PROVIDERS: PCP Family Medicine; Visit Provider Nurse Practitioner Family | DX: I48.0 Paroxysmal atrial fibrillation (principal); I10 Essential (primary) hypertension; I25.10 Atherosclerotic heart disease of native coronary artery without angina pectoris; Z87.891 Personal history of nicotine dependence | CPT/HCPCS: 93005; 99214 ==

== ENCOUNTER → 2024-04-02 10:29 | Outpatient (BNVA) | payer MEDICARE, SELFPAY | PROVIDERS: PCP Family Medicine; Visit Provider Student in an Organized Health Care Education/Training Program | DX: M25.511 Pain in right shoulder (principal); M75.41 Impingement syndrome of right shoulder | CPT/HCPCS: 20610; 73030; 99204; J3301 ==

== ENCOUNTER → 2024-04-13 13:14 | Outpatient (BNVA) | payer MEDICARE, SELFPAY | PROVIDERS: PCP Family Medicine; Visit Provider Internal Medicine | DX: I25.10 Atherosclerotic heart disease of native coronary artery without angina pectoris (principal); R06.02 Shortness of breath; I10 Essential (primary) hypertension; E78.5 Hyperlipidemia, unspecified; I48.0 Paroxysmal atrial fibrillation; Z87.891 Personal history of nicotine dependence; Z79.01 Long term (current) use of anticoagulants; Z79.82 Long term (current) use of aspirin | CPT/HCPCS: 99214 ==

== ENCOUNTER → 2024-07-06 09:45 | Outpatient (BNVA) | payer MEDICARE, SELFPAY | PROVIDERS: PCP Family Medicine; Visit Provider Student in an Organized Health Care Education/Training Program | DX: M75.41 Impingement syndrome of right shoulder (principal) | CPT/HCPCS: 99213 ==

== ENCOUNTER 2024-09-17 11:43 | Outpatient (CLI) | payer MEDICARE, SELFPAY ==
[2024-09-17 12:28] LABS: Basophils # 0.1 10^3/uL (0.0-0.1); Basophils % 1.4 %; Eosinophils # 0.2 10^3/uL (0.0-0.8); Eosinophils % 4.2 %; Hematocrit 31.2 % (37-53); Lymphocytes # 1.8 10^3/uL (0.8-4.8); Lymphocytes % 35.2 %; Mean Corpuscular HGB Conc 28.5 g/dL (30-55); Mean Corpuscular Hemoglobin 23.1 pg (27-33); Mean Corpuscular Volume 80.8 fl (82-101); Mean Platelet Volume 9.9 fL (7.4-10.4); Monocytes # 0.6 10^3/uL (0.2-0.9); Monocytes % 12.5 %; Neutrophils # 2.36 10^3/uL (1.8-7.7); Neutrophils % 46.5 %; Nucleated Red Blood Cells % 0 %; Platelet Count 419 10^3/cmm (157-399); Red Blood Count 3.86 10^6/uL (3.85-5.65); Red Cell Distribution Width 15.3 % (12.1-15.1); White Blood Count 5.06 10^3/uL (3.29-11.43)
== END 2024-09-17 11:44 | disposition home or self-care (01) ==
PROVIDERS: PCP Family Medicine; Visit Provider Nurse Practitioner Family
DX: R06.02 Shortness of breath (principal)
CPT/HCPCS: 85025

== ENCOUNTER → 2024-09-28 09:32 | Outpatient (BNVA) | payer MEDICARE, SELFPAY | PROVIDERS: PCP Family Medicine; Referring Provider Family Medicine; Visit Provider Surgery | DX: D64.9 Anemia, unspecified (principal) | CPT/HCPCS: 99204 ==

== ENCOUNTER 2024-10-04 10:44 | Emergency (ER) | payer MEDICARE, SELFPAY ==
[2024-10-04 11:06] VITALS: BP 130/78; PULSE 57; TEMP 36.3; O2SAT 100; BMI 37.4
--- NOTE | 2024-10-04 11:11 | ECG_ITS ---
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 Measurements Intervals [place] Rate: 52 P: 25 UT: 136 QRS: 59 QRSD: 89 T: 59 QT: 495 QTc: 464 Interpretive Statements SINUS BRADYCARDIA PROLONGED QT INTERVAL INTERPRETATION BASED ON A DEFAULT AGE OF 40 YEARS Compared to ECG 03/30/2024 10:44:55 Prolonged QT interval now present Sinus rhythm no longer present T-wave abnormality no longer present Electronically Signed On 10-05-2024 17:51:46 CDT by Cirilo Francis M.D. [email or web address] [id number]
[2024-10-04 11:38] LABS: Basophils # 0.1 10^3/uL (0.0-0.1); Basophils % 1.4 %; Eosinophils # 0.2 10^3/uL (0.0-0.8); Eosinophils % 4.7 %; Hematocrit 30.8 % (37-53); Lymphocytes # 1.6 10^3/uL (0.8-4.8); Lymphocytes % 30.6 %; Mean Corpuscular HGB Conc 28.2 g/dL (30-55); Mean Corpuscular Hemoglobin 22.7 pg (27-33); Mean Corpuscular Volume 80.2 fl (82-101); Mean Platelet Volume 9.7 fL (7.4-10.4); Monocytes # 0.8 10^3/uL (0.2-0.9); Monocytes % 15.3 %; Neutrophils # 2.44 10^3/uL (1.8-7.7); Neutrophils % 47.8 %; Nucleated Red Blood Cells % 0 %; Platelet Count 411 10^3/cmm (157-399); Red Blood Count 3.84 10^6/uL (3.85-5.65); Red Cell Distribution Width 15.8 % (12.1-15.1)
[2024-10-04 12:02] LABS: Alanine Aminotransferase 25 U/L (0-41); Albumin Level 3.8 g/dL (3.5-5.2); Alkaline Phosphatase 80 U/L (40-130); Anion Gap 14.5 (5-19); Aspartate Amino Transferase 24 U/L (0-40); Blood Urea Nitrogen 9 mg/dL (8-23); Calcium 9.2 mg/dL (8.5-10.5); Carbon Dioxide 25 mmol/L (22-29); Chloride 106 mmol/L (98-107); Creatinine Clr Calc Pharmacy 77.1258; Globulin 3.1 g/dL (1.3-4.6); Glomerular Filtration Rate 67.4 mL/min (90-130); Glucose 92 mg/dL (65-115); Lipase 33 U/L (13-60); Osmolality Calculated 290 mOsm/kg (285-295); Potassium 4.5 mmol/L (3.5-5.1); Sodium 141 mmol/L (136-145); Total Bilirubin 0.4 mg/dL (0.15-1.2); Total Protein 6.9 g/dL (6.6-8.7)
[2024-10-04 12:52] VITALS: BP 169/88; PULSE 53; RESP 16; O2SAT 99
[2024-10-04 13:01] LABS: Bilirubin Urine Negative (Negative); Blood Urine Negative (Negative); Glucose Urine UA Negative (Normal); Ketones Urine Negative (Negative); Leukocyte Esterase Urine Negative (Negative); Nitrate Urine Negative (Negative); Protein Urine Negative (Negative); Specific Gravity, Urine 1.005 (1.005-1.030); Urine Appearance Clear (CLEAR); Urine Color Yellow (Yellow); Urobilinogen Urine 0.2 mg/dL (Negative)
[2024-10-04 13:07] LABS: Add Urine Microscopic? YES; Bacteria Urine None Seen /hpf; Hyaline Casts Urine 0-4 /lpf; RBC Urine 0-2 /hpf (0-2); Squamous Epithelial Cell Urine 0-5 /hpf (0-5); WBC Urine 0-5 /hpf (0-5)
--- NOTE | 2024-10-04 13:10 | W.ED.ABDPA2 ---
HPI - Abdominal Pain General: Chief Complaint: Abdominal Pain Stated Complaint: stomach swelling Time Seen by Provider: 10/04/24 12:47 History of Present Illness: 63-year-old male presents emergency room complaining of abdominal pain that has been going on for several days. This been on and off kind of thing for him he has not really ever had a specific diagnosis related to it. She denies any hematemesis or coffee-ground emesis. He feels like his abdomen is distended. He denies any previous endoscopy he has follow-up with GI. Denies frequent alcohol use. Associated Symptoms: Reports bloating and GI cramping; Denies chills, dysuria and fever(s) Related Data Home Medications ?Medication ?Instructions ?Recorded ?Confirmed atorvastatin 40 mg tablet 40 mg PO BEDTIME 09/24/19 10/04/24 aspirin 81 mg tablet,delayed 81 mg PO DAILY 10/04/24 10/04/24 release fluticasone propionate 50 1 - 2 spray intranasal DAILY PRN 10/04/24 10/04/24 mcg/actuation nasal allergies spray,suspension oxymetazoline 0.05 % nasal spray 2 spray intranasal Q12H PRN 10/04/24 10/04/24 allergies sertraline 100 mg tablet 100 mg PO BEDTIME 10/04/24 10/04/24 Previous Rx's ?Medication ?Instructions ?Recorded apixaban 5 mg tablet (Eliquis) 5 mg PO BID@0900,2100 #180 tabs 06/01/24 carvedilol 12.5 mg tablet 12.5 mg PO BID #180 tabs 06/01/24 isosorbide mononitrate 60 mg 60 mg PO DAILY #90 tabs 06/01/24 tablet,extended release 24 hr nitroglycerin 0.4 mg sublingual 0.4 mg sublingual Q5M PRN chest 06/01/24 tablet pain #30 tabs ondansetron 8 mg disintegrating 8 mg PO Q8H PRN nausea and 09/28/24 tablet vomiting #3 tabs pantoprazole 40 mg tablet,delayed 40 mg PO DAILY #40 tabs 10/04/24 release promethazine 25 mg tablet 25 mg PO Q6H PRN nausea and 10/04/24 vomiting #20 tabs Allergies Allergy/AdvReac Type Severity Reaction Status Date / Time clopidogrel Allergy ALGY-Rash Verified 10/04/24 11:16 Review of Systems Const: Denies: fever(s) or chills Card: Denies: chest pain Resp: Denies: dyspnea GI: Reports: abdominal pain, bloating and GI cramping : Denies: dysuria, urinary frequency or urinary urgency Musc: Denies: neck pain or back pain Skin/Breast: Denies: rash PFSH ED PFSH: Medical History Atrial fibrillation Hyperlipidemia CAD (coronary artery disease) Hypertension Testicular hypogonadism Surgical History H/O neck surgery H/O hand surgery H/O heart artery stent Family History Father , at age 72 Brain aneurysm Hypertension Mother , at age 50 Cancer stomach Heart disease Social History Smoking and tobacco/nicotine status: former use of tobacco/nicotine Alcohol intake: current Alcohol intake frequency: 0-2 Drinks per Day Marital status: Current occupational status: retired Physical Exam Const: GENERAL APPEARANCE: cooperative ORIENTATION/CONSCIOUSNESS: Yes awake, Yes oriented to person, Yes oriented to place and Yes oriented to time HENMT: COMMON NORMALS: normocephalic, atraumatic and hearing grossly normal bilaterally HEAD & SCALP: normocephalic and atraumatic Resp: COMMON NORMALS: normal respiratory effort, No retractions, No use of accessory muscles and clear to auscultation bilaterally AUSCULTATION: clear to auscultation bilaterally Cardio: COMMON NORMALS: regular rate, regular rhythm and No murmurs present (Cardio) RATE: regular rate RHYTHM: regular rhythm GI: COMMON NORMALS: Soft to palpation and No hepatosplenomegaly present AUSCULTATION: Yes normoactive bowel sounds PALPATION: Yes Soft to palpation, No Tenderness to palpation present (GI), No Guarding due to palpation present (GI) and Yes No hepatosplenomegaly present Extremity: COMMON NORMALS: normal to inspection, capillary refill normal, no clubbing, cyanosis or edema, no calf tenderness and no pedal edema Neuro: SENSORIUM/ORIENTATION: Yes oriented to person, Yes oriented to place and Yes oriented to time Skin: COMMON NORMALS: no rashes or lesions noted GENERAL SKIN EXAM: no rashes or lesions noted Course Vital Signs: Vital signs: Vital Signs Temperature 97.3 F L 10/04/24 11:06 Pulse Rate 56 L 10/04/24 15:26 Respiratory Rate 16 10/04/24 14:42 Blood Pressure 131/77 10/04/24 15:26 Pulse Oximetry 98 10/04/24 15:26 Oxygen Delivery Me thod Room Air 10/04/24 14:42 MDM - Abdominal Pain Medical Decision Making No significant findings on exam. He is anemic this is been chronic. He is not currently having any active bleeding, he does not report having any hematochezia melena hematemesis coffee-ground emesis in the past.. The anemia seems to be chronic as MCV is 80. This occurred within the last year. No other cytopenias noted. CT did not show anything acute there is some inflammation around the stomach and the duodenum consistent with a duodenal or gastric duodenitis. Started on pantoprazole also gave promethazine discussed diet for reflux. Recommend that he follow-up with GI as planned do believe he would benefit from EGD. If he has any development of active bleeding signs or symptoms which were reviewed with him he should return to the emergency room. Lab Data 10/04/24 11:25 10/04/24 11:25 Labs/Radiology: Radiology Impressions Abdomen/Pelvis CT 10/04/24 13:11 IMPRESSION: 1. Small bilateral pleural effusions with bibasilar atelectasis. 2. Fatty liver. 3. A few tiny calculi in the gallbladder which is contracted. 4. Extensive sigmoid diverticulosis. No evidence of acute diverticulitis. 5. Gastric rugal thickening with enhancement compatible with gastritis and duodenitis. 6. No other acute findings. Laboratory Results WBC 5.10 10^3/uL (3.29-11.43) 10/04/24 11:25 RBC 3.84 10^6/uL (3.85-5.65) L 10/04/24 11:25 Hgb 8.70 g/dL (11.27-16.99) L 10/04/24 11:25 Hct 30.8 % (37-53) L 10/04/24 11:25 MCV 80.2 fl (82-101) L 10/04/24 11:25 MCH 22.7 pg (27-33) L 10/04/24 11:25 MCHC 28.2 g/dL (30-55) L 10/04/24 11:25 RDW 15.8 % (12.1-15.1) H 10/04/24 11:25 Plt Count 411 10^3/cmm (157-399) H 10/04/24 11:25 MPV 9.7 fL (7.4-10.4) 10/04/24 11:25 Neut % (Auto) 47.8 % 10/04/24 11:25 Lymph % (Auto) 30.6 % 10/04/24 11:25 [place] % (Auto) 15.3 % 10/04/24 11:25 Eos % (Auto) 4.7 % 10/04/24 11:25 Baso % (Auto) 1.4 % 10/04/24 11:25 Neut # (Auto) 2.44 10^3/uL (1.8-7.7) 10/04/24 11:25 Lymph # (Auto) 1.6 10^3/uL (0.8-4.8) 10/04/24 11:25 [place] # (Auto) 0.8 10^3/uL (0.2-0.9) 10/04/24 11:25 Eos # (Auto) 0.2 10^3/uL (0.0-0.8) 10/04/24 11:25 Baso # (Auto) 0.1 10^3/uL (0.0-0.1) 10/04/24 11:25 Nucleated RBC % (auto) 0 % 10/04/24 11:25 Nucleated RBCs # 0.0 /100WBC 10/04/24 11:25 Sodium 141 mmol/L (136-145) 10/04/24 11:25 Potassium 4.5 mmol/L (3.5-5.1) 10/04/24 11:25 Chloride 106 mmol/L (98-107) 10/04/24 11:25 Carbon Dioxide 25 mmol/L (22-29) 10/04/24 11:25 Anion Gap 14.5 (5-19) 10/04/24 11:25 BUN 9 mg/dL (8-23) 10/04/24 11:25 Creatinine 1.1 mg/dL (0.7-1.2) 10/04/24 11:25 GFR Calculation 67.4 mL/min (90-130) L 10/04/24 11:25 Glucose 92 mg/dL (65-115) 10/04/24 11:25 Calculated Osmolality 290 mOsm/kg (285-295) 10/04/24 11:25 Calcium 9.2 mg/dL (8.5-10.5) 10/04/24 11:25 Total Bilirubin 0.4 mg/dL (0.15-1.2) 10/04/24 11:25 AST 24 U/L (0-40) 10/04/24 11:25 ALT 25 U/L (0-41) 10/04/24 11:25 Alkaline Phosphatase 80 U/L (40-130) 10/04/24 11:25 Total Protein 6.9 g/dL (6.6-8.7) 10/04/24 11:25 Albumin 3.8 g/dL (3.5-5.2) 10/04/24 11:25 Globulin 3.1 g/dL (1.3-4.6) 10/04/24 11:25 Lipase 33 U/L (13-60) 10/04/24 11:25 Urine Color Yellow (Yellow) 10/04/24 12:20 Urine Appearance Clear (CLEAR) 10/04/24 12:20 Urine pH 7.0 (5-7) 10/04/24 12:20 Ur Specific [place] 1.005 (1.005-1.030) 10/04/24 12:20 Urine Protein Negative (Negative) 10/04/24 12:20 Urine Glucose (UA) Negative (Normal) 10/04/24 12:20 Urine Ketones Negative (Negative) 10/04/24 12:20 Urine Blood Negative (Negative) 10/04/24 12:20 Urine Nitrate Negative (Negative) 10/04/24 12:20 Urine Bilirubin Negative (Negative) 10/04/24 12:20 Urine Urobilinogen 0.2 mg/dL (Negative) 10/04/24 12:20 Ur Leukocyte Esterase Negative (Negative) 10/04/24 12:20 Urine RBC 0-2 /hpf (0-2) 10/04/24 12:20 Urine WBC 0-5 /hpf (0-5) 10/04/24 12:20 Ur Squamous Epith Cells 0-5 /hpf (0-5) 10/04/24 12:20 Amorphous Sediment Not Reportable 10/04/24 12:20 Urine Bacteria None seen /hpf (NONE) 10/04/24 12:20 Hyaline Casts 0-4 /lpf H 10/04/24 12:20 All radiology interpretation(s) finalized by discharge Discharge Plan Discharge Patient Disposition: Home Clinical Impression: Gastritis and duodenitis Condition: Stable Prescriptions: New pantoprazole 40 mg tablet,delayed release (DR/EC) 40 mg PO DAILY Qty: 40 0RF Rx Instructions: 1 tablet twice a day for 10 days then 1 tablet daily promethazine 25 mg tablet 25 mg PO Q6H PRN (Reason: nausea and vomiting) Qty: 20 0RF No Action atorvastatin 40 mg tablet 40 mg PO BEDTIME ondansetron 8 mg tablet,disintegrating 8 mg PO Q8H PRN (Reason: nausea and vomiting) Qty: 3 0RF carvedilol 12.5 mg tablet 12.5 mg PO BID Qty: 180 3RF Rx Instructions: must administer with a meal/food Eliquis 5 mg tablet 5 mg PO BID@0900,2100 Qty: 180 3RF isosorbide mononitrate 60 mg tablet extended release 24 hr 60 mg PO DAILY Qty: 90 3RF nitroglycerin 0.4 mg tablet, sublingual 0.4 mg sublingual Q5M PRN (Reason: chest pain) Qty: 30 2RF Rx Instructions: do not exceed 3 doses per episode sertraline 100 mg tablet 100 mg PO BEDTIME fluticasone propionate 50 mcg/actuation spray,suspension 1 - 2 spray INTRANASAL DAILY PRN (Reason: allergies) oxymetazoline 0.05 % [place],Non-Aerosol 2 spray INTRANASAL Q12H PRN (Reason: allergies) aspirin 81 mg tablet,delayed release (DR/EC) 81 mg PO DAILY Discharge Orders: Discharge ED (Routine); Ordered 10/04/24 Ordered By: Rojas Hou Referrals: Bakari Zazueta DO [Primary Care Provider, Family Practice] Discharge Diet: Clear Liquid Discharge Activity: Increase activity as tolerated Patient Instructions: Diet for Stomach Ulcers and Gastritis (ED), GERD (Gastroesophageal Reflux Disease) (ED), Opioid Safety, Pain Management Activity Restrictions/Additional Instructions: Thank you for choosing [facility] for your healthcare needs today. It is very important that you follow up as instructed or that you return to the Emergency Department should you have concerns or if your condition changes or worsens in any way. You were seen in the emergency room with complaints of abdominal pain and distention. CT of the abdomen showed inflammation of the stomach and duodenum but there is no sign of active bleeding. Your hemoglobin is low but it has not significantly decreased from the last time it was checked. Recommend you start on pantoprazole 1 tablet twice a day for 10 days then 1 tablet daily after that. This medicine will help protect the stomach. You are also given a prescription for promethazine to use as needed. finance business manager will make arrangements for you to follow-up with surgery you should have an EGD done to look at your stomach with the scope. Print Language: Latvian Coding Level of Care Code ED Newborn Photographer for Trenton Meza
--- NOTE | 2024-10-04 13:11 | CT_ITS ---
WS: [id number] CT ABDOMEN PELVIS TECHNIQUE: Contrast-enhanced CT of the abdomen and pelvis with coronal and sagittal reformatted images. CLINICAL INFORMATION: abd pain COMPARISON: None. DLP: 980.[address] scans at [facility] use at least one of these dose optimization techniques: automated exposure control; mA and/or kV adjustment per patient size (includes targeted exams where dose is matched to clinical indication); or iterative reconstruction. FINDINGS: Small bilateral pleural effusions. Bibasilar atelectasis. Diffuse fatty infiltration of the liver. Splenic granulomas. Normal GE junction. Gallbladder is contracted. Few tiny micro calculi in the gallbladder. Adrenal glands are normal. Celiac and SMA are patent. Normal portal vein and splenic vein. Adrenal glands are normal. No hydronephrosis in either kidney. Aortic calcification. Normal caliber abdominal aorta. Evidence of gastritis and duodenitis. Extensive sigmoid diverticulosis. No evidence of acute diverticulitis. No evidence of small or large bowel obstruction. Normal appendix. Small fat- containing umbilical hernia. CT/CT abdomen pelvis w con* [id number] IMPRESSION: 1. Small bilateral pleural effusions with bibasilar atelectasis. 2. Fatty liver. 3. A few tiny calculi in the gallbladder which is contracted. 4. Extensive sigmoid diverticulosis. No evidence of acute diverticulitis. 5. Gastric rugal thickening with enhancement compatible with gastritis and duo denitis. 6. No other acute findings.
[2024-10-04 13:20] VITALS: BP 154/92; PULSE 54; RESP 16; O2SAT 99
[2024-10-04] MEDS: iohexol 350 mg/mL 500 mL Btl (per mL) IV (13:56)
[2024-10-04 14:42] VITALS: BP 142/75; PULSE 56; RESP 16; O2SAT 95
[2024-10-04 15:26] VITALS: BP 131/77; PULSE 56; O2SAT 98
== END 2024-10-04 15:27 | disposition home or self-care (01) ==
PROVIDERS: Emergency Medicine; Emergency Provider Family Medicine; PCP Family Medicine
DX: K29.70 Gastritis, unspecified, without bleeding (principal); K29.80 Duodenitis without bleeding; I48.91 Unspecified atrial fibrillation; E78.5 Hyperlipidemia, unspecified; I25.10 Atherosclerotic heart disease of native coronary artery without angina pectoris; I10 Essential (primary) hypertension; Z87.891 Personal history of nicotine dependence; Z79.82 Long term (current) use of aspirin; Z79.899 Other long term (current) drug therapy; Z88.8 Allergy status to other drugs, medicaments and biological substances
CPT/HCPCS: 36415; 74177; 80053; 81001; 83690; 85025; 93005; 99285

== ENCOUNTER 2024-10-14 08:19 | Day surgery (SDC) | payer MEDICARE, SELFPAY ==
[2024-10-14 08:48] VITALS: BP 152/81; PULSE 66; RESP 16; TEMP 36.2; O2SAT 96; BMI 37.4
[2024-10-14] MEDS: sodium chloride 0.9% 1,000 ML 15 ML IV (09:02)
--- NOTE | 2024-10-14 09:24 | W.PM.OPSUD ---
Surgery/Procedure H&P Update DATE OF PROCEDURE: October 14, 2024 DATE H&P PERFORMED: 09/28/24 H&P UPDATE INFORMATION: I have reviewed H&P completed within last 30 days, I have examined patient prior to procedure, No changes to prior documentation, Changes to prior documentation as noted here and Risks and benefits of the procedure reviewed PLANNED PROCEDURE: Operation Date: 10/14/24 10:10 Proposed Procedures p EGD 31504 [id number] G0105 K92.2 D64.9(Not Applicable) - Maciel De León MD s Colonoscopy(Not Applicable) - Maciel De León MD
--- NOTE | 2024-10-14 09:57 | ANES.PREANE2 ---
Pre-Anesthetic Assessment Height/Weight: Height 1.68 m Weight 105.233 kg Temp Pulse Resp BP Pulse Ox O2 Del Method 97.2 F L 66 16 152/81 96 Room Air 10/14/24 08:48 10/14/24 08:48 10/14/24 08:48 10/14/24 08:48 10/14/24 08:48 10/14/24 08:48 Preop Diagnosis: Anemia Operation Date: 10/14/24 10:10 Proposed Procedures p EGD 45332 [id number] G0105 K92.2 D64.9(Not Applicable) - Maciel De León MD s Colonoscopy(Not Applicable) - Maciel De León MD Familial anesthetic complications: none Was Beta Joe taken within 24 hours: Yes Was Clonidine taken within 24 hours: N/A Last intake: Intake Last Liquid Date 10/13/24 Last Liquid Time 21:00 Last Solid Date 10/12/24 Last Solid Time 18:00 Social No alcohol and No tobacco Exam alert, oriented x 3, clear to auscultation bilaterally and regular rate & rhythm Airway Cervical ROM: within normal limits Mallampati: Class III Comments: Comments: endentulous Pulmonary Sleep Apnea and Shortness of Breath CV/HEM Atrial Fibrillation, Coronary Artery Disease and Myocardial Infarction (x7 stents) Eliquis 3 days ago, activity intolerance, last stress test negative, last echo shows EF 63%. Hepatic None reported GI None reported Metabolic Hyperlipidemia and Morbid Obesity [facility] None reported Neuropsych None reported Anesthetic Plan ASA status: 3 Anesthesia: MAC Risk of > 500 ml blood loss (7ml/kg in children): No Medications/Allergies Home Medications ?Medication ?Instructions ?Recorded ?Confirmed ?Last Taken ?Type atorvastatin 40 mg tablet 40 mg PO BEDTIME 09/24/19 10/14/24 10/11/24 History isosorbide mononitrate 60 mg 60 mg PO DAILY #90 tabs 06/01/24 10/14/24 10/12/24 Rx tablet,extended release 24 hr ondansetron 8 mg disintegrating 8 mg PO Q8H PRN nausea and 09/28/24 10/14/24 Unknown Rx tablet vomiting #3 tabs aspirin 81 mg tablet,delayed 81 mg PO DAILY 10/04/24 10/14/24 10/11/24 History release fluticasone propionate 50 1 - 2 spray intranasal DAILY PRN 10/04/24 10/14/24 Unknown History mcg/actuation nasal allergies spray,suspension oxymetazoline 0.05 % nasal spray 2 spray intranasal Q12H PRN 10/04/24 10/14/24 Unknown History allergies promethazine 25 mg tablet 25 mg PO Q6H PRN nausea and 10/04/24 10/14/24 Unknown Rx vomiting #20 tabs sertraline 100 mg tablet 100 mg PO BEDTIME 10/04/24 10/14/24 10/11/24 History apixaban 5 mg tablet (Eliquis) 5 mg PO DAILY 10/12/24 10/14/24 10/11/24 History carvedilol 12.5 mg tablet 6.25 mg PO DAILY 10/12/24 10/14/24 10/11/24 History Allergies Allergy/AdvReac Type Severity Reaction Status Date / Time clopidogrel Allergy ALGY-Rash Verified 10/14/24 08:47 Current Medications Generic Name Dose Route Start Last Admin Trade Name Freq PRN Reason Stop Dose Admin Sodium Chloride 1,000 mls @ 15 mls/hr 10/14/24 08:32 10/14/24 09:02 Sodium Chloride 0.9% IV 10/15/24 08:31 15 mls/hr .Q24H PRN Administration COLONOSCOPY FLUIDS PFSH Anesthesia Medical History Atrial fibrillation Hyperlipidemia CAD (coronary artery disease) Hypertension Testicular hypogonadism Surgical History H/O neck surgery H/O hand surgery H/O heart artery stent Family History Father , at age 72 Brain aneurysm Hypertension Mother , at age 50 Cancer stomach Heart disease Social History Smoking and tobacco/nicotine status: former use of tobacco/nicotine Alcohol intake: current Alcohol intake frequency: 0-2 Drinks per Day Marital status: Current occupational status: retired Data Anesthesia Cardiac Studies: Echocardiogram 07/25/22 Sestamibi Stress Test (Cardiology) 08/27/23 Cardiac Event Monitor 03/30/24
[2024-10-14 10:35] VITALS: BP 131/78; PULSE 61; RESP 18; TEMP 36.4; O2SAT 96
[2024-10-14 10:46] VITALS: BP 139/79; PULSE 75; RESP 18; TEMP 36.3; O2SAT 95
--- NOTE | 2024-10-14 11:15 | ANE.PACU2 ---
Inpatient post-anesthesia follow up: Airway intact: Yes Vital signs: Temperature 97.4 F Pulse Rate 75 Respiratory Rate 18 Blood Pressure 139/79 Pulse Oximetry 95 Oxygen Delivery Me thod Room Air Oxygen Flow Rate Fraction of Inspir ed Oxygen Hydration adequate: Yes Nausea and vomiting: No Pain level: 1 Mental status: Baseline
== END 2024-10-14 11:15 | disposition home or self-care (01) ==
PROVIDERS: PCP Family Medicine; Visit Provider Surgery
PROC: 0DJ08ZZ Inspection of Upper Intestinal Tract, Via Natural or Artificial Opening Endoscopic (ICD-10-PCS; principal; 2024-10-14 10:10)
PROC: 0DJD8ZZ Inspection of Lower Intestinal Tract, Via Natural or Artificial Opening Endoscopic (ICD-10-PCS; CPT 45378; 2024-10-14 10:10)
DX: Z12.11 Encounter for screening for malignant neoplasm of colon (principal); K29.30 Chronic superficial gastritis without bleeding; B96.81 Helicobacter pylori [H. pylori] as the cause of diseases classified elsewhere; I48.91 Unspecified atrial fibrillation; I25.10 Atherosclerotic heart disease of native coronary artery without angina pectoris; I25.2 Old myocardial infarction; I10 Essential (primary) hypertension; D50.9 Iron deficiency anemia, unspecified; E78.5 Hyperlipidemia, unspecified; Z95.5 Presence of coronary angioplasty implant and graft; Z79.01 Long term (current) use of anticoagulants; E66.01 Morbid (severe) obesity due to excess calories; Z68.37 Body mass index [BMI] 37.0-37.9, adult; Z79.899 Other long term (current) drug therapy; Z80.0 Family history of malignant neoplasm of digestive organs; Z87.891 Personal history of nicotine dependence
CPT/HCPCS: 43239; 88305; 88342; G0121; J2704; J7030

== ENCOUNTER → 2024-11-03 13:49 | Outpatient (BNVA) | payer MEDICARE, SELFPAY | PROVIDERS: PCP Family Medicine; Visit Provider Surgery | DX: Z09 Encounter for follow-up examination after completed treatment for conditions other than malignant neoplasm (principal) | CPT/HCPCS: 99214 ==

== ENCOUNTER 2024-12-06 08:51 | Emergency (ER) | payer MEDICARE, SELFPAY ==
[2024-12-06 08:55] VITALS: BP 140/77; PULSE 90; RESP 16; TEMP 36.8; O2SAT 96; BMI 38.4
--- NOTE | 2024-12-06 08:56 | ECG_ITS ---
[facility] Test Date: 2024-12-06 Pat Name: Tulio Brown Department: Room: Gender: Male Outsoles Channel Opener: : 1960 Requested By: Rojas Carrera Order Number: [id number] Andie MD: Cirilo Francis M.D. Measurements Intervals Amonate Rate: 92 P: 42 DC: 161 QRS: 7 QRSD: 77 T: 45 QT: 373 QTc: 461 Interpretive Statements SINUS RHYTHM Compared to ECG 10/04/2024 11:11:30 Sinus bradycardia no longer present Prolonged QT interval no longer present Electronically Signed On 12-06-2024 16:59:39 CDT by Cirilo Francis M.D. [email or web address]
--- OUTSIDE RECORDS SUMMARY | 2024-12-06 09:02 | XMS_ITS | Clinical Summary ---
Author Organization [facility] Address [address] [place] [address] Phone Care Team Providers Care Ball Rolling Machine Operator Name Role Phone Unavailable Primary Care Provider Unavailabl e Allergies Active Allergy Reactions Criticality Noted Date Comments Clopidogrel Arrhythmia High 06/09/2024 Paroxetine Hcl Hives High 11/20/2021 Medications atorvastatin (LIPITOR) 40 mg tablet 2 Active sertraline (ZOLOFT) 50 mg tablet Take 100 mg by mouth daily. 2 Active amiodarone (CORDARONE) 200 mg tablet Take 200 mg by mouth daily. 4 Active Eliquis 5 mg tablet Take 5 mg by mouth 2 times daily. 4 Active aspirin (ECOTRIN EC) 81 mg Tablet, Delayed Release (E.C.) Take 81 mg by mouth daily. Active carvediloL (COREG) 12.5 mg tablet Take 12.5 mg by mouth 2 times daily with meals. Active chlorthalidone (HYGROTON) 25 mg tablet Take 1 Tablet (25 mg) by mouth daily. 30 Tablet 11 5 Active Additional Information Patient not taking.Reported on 11/09/2024 albuterol sulfate HFA 90 mcg/actuation aerosol inhaler Take 2 Puffs by inhalation every 6 hours as needed. 5 Active amoxicillin (AMOXIL) 500 mg capsule Take 500 mg by mouth 2 times daily. 2 capsules by mouth twice daily 5 Active pantoprazole (PROTONIX) 40 mg Tablet, Delayed Release (E.C.) Take 1 Tablet by mouth 2 times daily. Active RED BEET ORAL Take by mouth. A ctive Active Problems Problem Noted Date Diagnosed Date AF (atrial fibrillation) 11/26/2024 Chronic anticoagulation 07/12/2024 Paroxysmal atrial fibrillation 04/29/2024 Angina, class III 04/29/2024 Encounters Date Type Department Care Team Description 12/01/2024 External Device Data [facility] ABSTRACTION Provider, Abstract 11/26/2024 Telephone [place] [address] [place] [phone] Wilfredo Sánchez MD No Hospitality room available 11/26/2024 Prep for Surgery [place] [address] [place] [phone] Wilfredo Sánchez MD PAF (paroxysmal atrial fibrillation) (CMS/HCC) (Primary Dx) 11/25/2024 Telephone [place] [address] [place] [phone] Wilfredo Sánchez MD schedule ablation 11/09/2024 2:40 PM CDT Office Visit [place] [address] [place] [phone] Deepak Albarran NP ASHD (arteriosclerotic heart disease) (Primary Dx); PAF (paroxysmal atrial fibrillation) ([facility]); Chronic anticoagulation; [facility] current use of antiarrhythmic drug; Benign hypertension 11/02/2024 External Device Data [facility] ABSTRACTION Provider, Abstract 10/06/2024 External Device Data [facility] ABSTRACTION Provider, Abstract 10/05/2024 External Device Data [facility] ABSTRACTION Provider, Abstract 10/01/2024 Telephone [place] [id number] [place] [phone] Wilfredo Sánchez MD Asking to schedule Ablation 09/13/2024 Telephone [place] [address] [place] [phone] Wilfredo Sánchez MD In Afib, Schedule surgery from Last 3 Months Immunizations Immunization Administration Dates Next Due (ADACEL/BOOSTRIX)(10 YR UP) TDAP VACCINE, 0.5ML, IM 11/20/2009 Social History Tobacco Use Types Packs/Day Years Used Date Smoking Tobacco: Never Smokeless Tobacco: Never Tobacco Cessation:Counseling Given: Not Answered Alcohol Use Standard Drinks/Week Comments Yes 28 (1 standard drink = 0.6 oz pu re alcohol) Sex and Gender Information Value Date Recorded Sex Assigned at Not on file Legal Sex Male 1:13 AM ROTOR PILOT Gender Identity Not on file Sexual Orientation Not on file Last Filed Vital Signs Vital Sign Reading Time Taken Comments Blood Pressure 122/72 11/09/2024 3:40 PM CDT Pulse 73 11/09/2024 2:50 PM CDT Temperature 36.8 C (98.2 F) 06/09/2024 7:55 AM ROTOR PILOT Respiratory Rate 60 06/09/2024 7:55 AM ROTOR PILOT Oxygen Saturation 97% 06/09/2024 12:30 PM ROTOR PILOT Inhaled Oxygen Concentration - - Weight 105.7 kg (233 lb) 11/09/2024 2:50 PM CDT Height 170.2 cm (5' 7 ) 11/09/2024 2:50 PM CDT Body Mass Index 36.49 11/09/2024 2:50 PM CDT Plan of Treatment Upcoming Encounters Date Type Department Care Team (Latest Contact Info) Description 12/09/2024 11:30 AM CDT Appointment [facility] Pre Admission Testing [address] [place] [address] 12/09/2024 1:30 PM CDT Hospital Encounter [facility] Echo [address] [place] [phone] Wilfredo Sánchez MD [address] [facility] [address] [place] [address] 12/10/2024 1:59 PM CDT Hospital Encounter [facility] Cardiac Communications Representative [address] [place] [address] Wilfredo Sánchez MD [address] [place] [phone] AF (atrial fibrillation) (CMS/HCC) 12/10/2024 1:59 PM CDT - 12/10/2024 6:12 PM CDT Surgery [facility] Cardiac Communications Representative [address] [place] [address] Wilfredo Sánchez MD [address] [place] [phone] PVI Ablation 05/17/2025 1:30 PM ROTOR PILOT Office Visit [facility] [address] [place] [phone] Kg Mac MD [address] [place] [phone] Health Maintenance Due Date Last Done Comments Pre-Diabetes and Diabetes Screening 1960 COLORECTAL SCREENING 12/12/2004 Colorectal Cancer Screening 12/12/2004 FIT-DNA Q 3 years 12/12/2004 FIT/FOBT Q 1 year 12/12/2004 Flex Sig/CT Colonography Q 5 years 12/12/2004 ZOSTER VACCINE (1 of 2) 12/12/2009 DTAP/TDAP/TD VACCINES (2 - Td or Tdap) 11/21/2019 RSV VACCINE (60+ or ) (1 - Risk 60-74 years 1-dose series) 2019 [place]) Prev entative Visit/Annual Wellness Visit 05/19/2024 INFLUENZA VACCINE (#1) 2024 Insurance BCBS MEDICARE HMO Advance Directives For more information, please contact: [phone] * Full Code (Latest Code Status on File) Date Activated Date Inactivated Comments 06/09/2024 6:53 AM 06/09/2024 3:01 PM
--- OUTSIDE RECORDS SUMMARY | 2024-12-06 09:02 | XMS_ITS | Encounter Summary ---
Author Organization [facility] Address 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 [address] Wilfredo Sánchez MD [address] [facility] [address] [place] [address] 12/10/2024 1:59 PM CDT Hospital Encounter [facility] Cardiac Ict Developer [address] 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
[2024-12-06 09:56] LABS: Hematocrit 29.0 % (37-53); Hemoglobin 8.10 g/dL (11.27-16.99); Mean Corpuscular HGB Conc 27.9 g/dL (30-55); Mean Corpuscular Hemoglobin 20.0 pg (27-33); Mean Corpuscular Volume 71.4 fl (82-101); Nucleated Red Blood Cells % 0 %; Platelet Count 488 10^3/cmm (157-399); Red Blood Count 4.06 10^6/uL (3.85-5.65); White Blood Count 7.63 10^3/uL (3.29-11.43)
[2024-12-06 10:22] LABS: Alanine Aminotransferase 36 U/L (0-41); Albumin Level 4.0 g/dL (3.5-5.2); Alkaline Phosphatase 70 U/L (40-130); Anion Gap 15.1 (5-19); Aspartate Amino Transferase 33 U/L (0-40); Blood Urea Nitrogen 10 mg/dL (8-23); Calcium 9.1 mg/dL (8.5-10.5); Carbon Dioxide 25 mmol/L (22-29); Chloride 102 mmol/L (98-107); Creatinine Clr Calc Pharmacy 85.9877; Globulin 3.0 g/dL (1.3-4.6); Glucose 88 mg/dL (65-115); Osmolality Calculated 284 mOsm/kg (285-295); Potassium 4.1 mmol/L (3.5-5.1); Sodium 138 mmol/L (136-145); Total Protein 7.0 g/dL (6.6-8.7)
== END 2024-12-06 11:21 | disposition left against medical advice (07) ==
PROVIDERS: Family Medicine; Emergency Provider Emergency Medicine; PCP Family Medicine
DX: Z53.21 Procedure and treatment not carried out due to patient leaving prior to being seen by health care provider (principal); M79.89 Other specified soft tissue disorders
CPT/HCPCS: 36415; 80053; 85025; 93005